=== PATIENT | female | born 1990 | race Caucasian/White ===

== ENCOUNTER 2019-11-26 18:52 | Emergency (ER) | payer OTHER ==
[2019-11-26 19:21] VITALS: RESP 18
[2019-11-26] MEDS ORDERED: ACETAMINOPHEN TAB 500 MG TAB PO STA (20:42)
[2019-11-26] MEDS ORDERED: SODIUM CHLORIDE 0.9% 1,000 ML IV STA (20:42)
--- NOTE | 2019-11-26 21:04 | XR ---
EXAMINATION TYPE: XR chest 2V DATE OF EXAM: 11/26/2019 COMPARISON: NONE HISTORY: Cough TECHNIQUE: FINDINGS: Heart and mediastinum are normal. Lungs are clear. Diaphragm is normal. Bony thorax appears normal. IMPRESSION: Normal chest
--- NOTE | 2019-11-26 21:09 | ED ---
General Adult HPI - General Chief complaint: Upper Respiratory Infection Stated complaint: +flu Time Seen by Provider: 11/26/19 20:23 Source: patient, RN notes reviewed, old records reviewed Mode of arrival: ambulatory Limitations: no limitations - History of Present Illness Initial comments: 29-year-old female patient presents to ED for chief complaint of influenza B. Patient has been having cough, fevers chills, diarrhea, nausea for last 5 days. Patient was seen in urgent care today and diagnosed with influenza initiated on Tamiflu. Patient states that she was told by urgent care she feels worse with emergency department. Patient reports that she is still feeling poorly. Denies any other complaints. Systemic: Pt denies fatigue, fever/chills, rash. Pt denies weakness, night sweats, weight loss. Neuro: Pt denies headache, visual disturbances, syncope or pre-syncope. HEENT: Pt denies ocular discharge or irritation, otalgia, rhinorrhea, ph aryngitis or notable lymphadenopathy. Cardiopulmonary: Pt denies chest pain, SOB, heart palpitations, dyspnea on exertion. Abdominal/GI: Pt denies abdominal pain, n/v/d. : Pt denies dysuria, burning w/ urination, frequency/urgency. Denies new onset urinary or bowel incontinence. MSK: Pt denies myalgia, loss of strength or function in extremities. Neuro: Pt denies new onset weakness, paresthesias. - Related Data Home Medications Medication Instructions Recorded Confirmed No Known Home Medications 03/13/15 03/13/15 Allergies Allergy/AdvReac Type Severity Reaction Status Date / Time aspirin AdvReac Rash/Hives Verified 11/26/19 19:17 peanut AdvReac Unknown Verified 11/26/19 19:17 Review of Systems ROS Statement: Those systems with pertinent positive or pertinent negative responses have been documented in the HPI. ROS Other: All systems not noted in ROS Statement are negative. 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 HEENT: NC/AT, trachea midline, neck supple, no lymphadenopathy. Posterior pharynx non erythematous, without exudates. External ears appear normal, without discharge. Mucous membranes moist. Eyes PERRLA, EOM intact. There is no scleral icterus. No pallor noted. Cardiopulmonary: RRR, no murmurs, rubs or gallops, no JVD noted. Lungs CTAB in anterior and posterior rider. No peripheral edema. Abdominal exam: Abdomen soft and non-distended. Abdomen non-tender to palpation in all 4 quadrants. Bowel sounds active in LLQ. No hepatosplenomegaly. No ecchymosis Neuro: CN II-XII grossly intact. No nuchal rigidity. No raccon eyes, no pino sign, no hemotympanum. No cervical spinal tenderness. MSK: No posterior calf tenderness bilaterally, homans sign negative bilaterally. Posterior tibialis and radial pulse +2 bilaterally. Sensation intact in upper and lower extremities. Full active ROM in upper and lower extremities, 5/5 stregnth. Limitations: no limitations Course Vital Signs 11/26/19 11/26/19 19:17 20:29 Temperature 99.8 F H Pulse Rate 115 H Respiratory 18 18 Rate Blood Pressure 120/77 O2 Sat by Pulse 100 Oximetry Medical Decision Making - Medical Decision Making 29-year-old female patient presents to ED for chief complaint of influenza B. Patient has been having cough, fevers chills, diarrhea, nausea for last 5 days. Patient was seen in urgent care today and diagnosed with influenza initiated on Tamiflu. Patient states that she was told by urgent care she feels worse with emergency department. Patient reports that she is still feeling poorly. Denies any other complaints. Patient will signs displayed 99.8 obturator, mild tachycardia. Patient was a Mr. antipyretic. Physical exam did not display acute pathology. Chest x-ray is negative. Patient was administered fluid bolus and antipyretics. Patient will be discharged, follow-up with primary care prior to return to ER if condition worsens. Case discussed with Dr. Ji. Disposition Clinical Impression: Influenza Disposition: HOME SELF-CARE Condition: Stable Instructions (If sedation given, give patient instructions): Influenza (ED) Additional Instructions: Continue to take Tamiflu as directed. Use Tylenol Motrin as needed for fever. Continue to drink lots of fluids. Return to ER if condition worsens. Is patient prescribed a controlled substance at d/c from ED?: No Referrals: Susie Muller MD [Primary Care Provider] - 1-2 days
[2019-11-26] MEDS ORDERED: FLUTICASONE 50MCG/SPRAY NASAL 16GM EA NOSTRIL STA (21:11)
[2019-11-26 22:33] VITALS: BP 119/67; PULSE 87; TEMP 98.9
== END 2019-11-26 22:35 | disposition home or self-care (01) ==
LOC: EC 18:52
DX: J10.1 Influenza due to other identified influenza virus with other respiratory manifestations (principal); R11.0 Nausea; R19.7 Diarrhea, unspecified; Z87.891 Personal history of nicotine dependence; Z88.6 Allergy status to analgesic agent; Z91.010 Allergy to peanuts; Z90.49 Acquired absence of other specified parts of digestive tract
CPT/HCPCS: 71046; 96360; 99284

== ENCOUNTER 2021-02-27 03:08 | Emergency (ER) | payer OTHER ==
[2021-02-27 03:14] VITALS: TEMP 98
[2021-02-27] MEDS ORDERED: SODIUM CHLORIDE 0.9% 500 ML 500 ML IV STA (03:44)
[2021-02-27] MEDS ORDERED: HYDROcodone/APAP 5-325MG 1 EACH TAB PO STA (03:45)
--- NOTE | 2021-02-27 03:48 | ED ---
Chest Pain HPI - General Chief Complaint: Chest Pain Stated Complaint: covid+, Chest Pain Time Seen by Provider: 02/27/21 03:22 Source: patient Mode of arrival: wheelchair Limitations: no limitations - History of Present Illness MD Complaint: chest pain -: hour(s) Onset: during rest Pain Location: left chest Pain Radiation: none Severity: moderate Quality: aching Improves With: nothing Worsens With: nothing Other Symptoms: cough, fever - Related Data Previous Rx's Medication Instructions Recorded Acetaminophen-Codeine 300-30mg 1 tab PO Q4H PRN #16 tablet 02/27/21 [Tylenol w/codeine #3] Ondansetron Odt [Zofran ODT] 4 mg PO Q8HR PRN #10 tab 02/27/21 Allergies Allergy/AdvReac Type Severity Reaction Status Date / Time aspirin AdvReac Rash/Hives Verified 02/27/21 03:11 peanut AdvReac Unknown Verified 02/27/21 03:11 Review of Systems ROS Statement: Those systems with pertinent positive or pertinent negative responses have been documented in the HPI. ROS Other: All systems not noted in ROS Statement are negative. Constitutional: Reports: fever, chills Respiratory: Reports: cough. Denies: dyspnea Cardiovascular: Reports: chest pain. Denies: palpitations, edema Gastrointestinal: Reports: nausea. Denies: abdominal pain, vomiting Genitourinary: Denies: dysuria, hematuria Musculoskeletal: Reports: back pain, myalgia Skin: Denies: rash Neurological: Reports: headache EKG Findings - EKG Results: EKG: interpreted by ERMD, sinus rhythm (Rate 88 bpm), normal axis, normal QRS, normal ST/T - Blocks, [place], Hypertrophy, ST Abn: Repolarization changes or abnormalities: nonspecific abnormality, ST segment, and/or T wave 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 Absent: scleral icterus, conjunctival injection ENT exam: Present: normal oropharynx Neck exam: Present: normal inspection Respiratory exam: Present: normal lung sounds bilaterally, chest wall tenderness. Absent: respiratory distress, wheezes, rales, rhonchi, stridor Cardiovascular Exam: Present: regular rate, normal rhythm, normal heart sounds. Absent: systolic murmur, diastolic murmur, rubs, gallop GI/Abdominal exam: Present: soft. Absent: distended, tenderness, guarding, rebound, rigid, mass Extremities exam: Present: normal inspection, normal capillary refill. Absent: pedal edema, calf tenderness Back exam: Present: normal inspection. Absent: CVA tenderness (R), CVA tenderness (L) Neurological exam: Present: alert Skin exam: Present: warm, dry, intact, normal color. Absent: rash Course Vital Signs 02/27/21 02/27/21 02/27/21 03:11 03:30 03:52 Temperature 98.0 F Pulse Rate 98 86 Respiratory 18 20 24 Rate Blood Pressure 110/62 105/60 O2 Sat by Pulse 100 97 Oximetry Disposition Clinical Impression: Chest pain, COVID-19 Disposition: HOME SELF-CARE Condition: Good Instructions (If sedation given, give patient instructions): Coronavirus Disease 2019 (COVID-19), Chest Pain (ED) Prescriptions: Acetaminophen-Codeine 300-30mg [Tylenol w/codeine #3] 1 tab PO Q4H PRN #16 tablet PRN Reason: Pain Ondansetron Odt [Zofran ODT] 4 mg PO Q8HR PRN #10 tab PRN Reason: Nausea Is patient prescribed a controlled substance at d/c from ED?: No Referrals: Susie Muller MD [Primary Care Provider] - 1-2 days
[2021-02-27 03:52] VITALS: BP 105/60; PULSE 86; RESP 24
[2021-02-27 04:06] LABS: Basophils % (A) 0 %; Eosinophils % (A) 1 %; HCT 40.9 % (34.0-46.0); HGB 14.3 gm/dL (11.4-16.0); Lymphocytes # (A) 0.7 k/uL (1.0-4.8); Lymphocytes % (A) 29 %; MCH 29.6 pg (25.0-35.0); MCHC 34.9 g/dL (31.0-37.0); MCV 84.9 fL (80.0-100.0); Mean Platelet Volume 10.4; Monocytes # (A) 0.1 k/uL (0-1.0); Monocytes % (A) 5 %; Neutrophils # (A) 1.5 k/uL (1.3-7.7); Neutrophils % (A) 64 %; Platelet Count 106 k/uL (150-450); RBC 4.82 m/uL (3.80-5.40); RDW 11.9 % (11.5-15.5); WBC 2.4 k/uL (3.8-10.6)
[2021-02-27 04:17] LABS: ALT 40 U/L (4-34); AST 43 U/L (14-36); African American GFR (CKD) >90 (>60 ml/min/1.73 sqM); Albumin 3.8 g/dL (3.5-5.0); Alkaline Phosphatase 93 U/L (38-126); Anion Gap 6 mmol/L; Blood Urea Nitrogen 14 mg/dL (7-17); Calcium 8.9 mg/dL (8.4-10.2); Carbon Dioxide 25 mmol/L (22-30); Chloride 106 mmol/L (98-107); Glucose 91 mg/dL (74-99); Magnesium 1.5 mg/dL (1.6-2.3); Non-African American GFR(CKD) >90 (>60 ml/min/1.73 sqM); Sodium 137 mmol/L (137-145); Total Bilirubin 0.4 mg/dL (0.2-1.3); Total Protein 6.4 g/dL (6.3-8.2)
[2021-02-27 04:18] LABS: Potassium 3.9 mmol/L (3.5-5.1)
[2021-02-27 04:21] LABS: INR 0.9 (<1.2); Partial Thromboplastin Time 24.2 sec (22.0-30.0); Prothrombin Time 9.9 sec (9.0-12.0)
--- NOTE | 2021-02-27 04:36 | XR ---
EXAM: XR Chest, 2 Views CLINICAL HISTORY: ITS.REASON XR Reason: Chest Pain TECHNIQUE: Frontal and lateral views of the chest. COMPARISON: 11/26/2019 FINDINGS: Lungs: Unremarkable. No consolidation. Pleural space: Unremarkable. No pneumothorax. Heart: Unremarkable. No cardiomegaly. Mediastinum: Unremarkable. Bones/joints: Unremarkable. IMPRESSION: No acute pulmonary process.
[2021-02-27 05:00] LABS: D-Dimer 0.82 mg/L FEU (<0.60)
--- NOTE | 2021-02-27 06:28 | CT ---
EXAM: CT Angiography Chest With Intravenous Contrast CLINICAL HISTORY: ITS.REASON CT Reason: possible PE TECHNIQUE: Axial computed tomographic angiography images of the chest with intravenous contrast. CTDI is 22.17 mGy and DLP is 275.2 mGy-cm. This CT exam was performed using one or more of the following dose reduction techniques: automated exposure control, adjustment of the mA and/or kV according to patient size, and/or use of iterative reconstruction technique. MIP reconstructed images were created and reviewed. COMPARISON: No relevant prior studies available. FINDINGS: Pulmonary arteries: Unremarkable. No pulmonary embolism. Aorta: No acute findings. No thoracic aortic aneurysm. Lungs: Patchy opacification of the posterior right base. No mass. Pleural space: Unremarkable. No significant effusion. No pneumothorax. Heart: Unremarkable. No cardiomegaly. No significant pericardial effusion. No evidence of RV dysfunction. Bones/joints: No acute fracture. No dislocation. Soft tissues: Unremarkable. Lymph nodes: Unremarkable. No enlarged lymph nodes. IMPRESSION: 1. No acute pulmonary ballism. 2. Patchy focus of nodular consolidation of the posterior right base which may be due to aspiration or infection.
== END 2021-02-27 07:59 | disposition home or self-care (01) ==
LOC: EC 03:08
DX: U07.1 COVID-19 (principal); R07.9 Chest pain, unspecified; J45.909 Unspecified asthma, uncomplicated; F17.200 Nicotine dependence, unspecified, uncomplicated; Z90.49 Acquired absence of other specified parts of digestive tract
CPT/HCPCS: 99285; 36415; 93005; 85379; 80053; 83735; 84484; 85025; 85610; 85730; 71046; 71275; Q9967

== ENCOUNTER 2021-03-01 13:14 | Emergency (ER) | payer OTHER ==
[2021-03-01 13:24] VITALS: BP 113/78; PULSE 101; RESP 18; TEMP 98
[2021-03-01] MEDS ORDERED: SODIUM CHLORIDE 0.9% 1,000 ML IV STA (13:29)
--- NOTE | 2021-03-01 13:29 | ED ---
Nausea/Vomiting/Diarrhea HPI - General Chief complaint: Nausea/Vomiting/Diarrhea Stated complaint: Covid +,SOB Time Seen by Provider: 03/01/21 13:28 Source: patient Mode of arrival: ambulatory - History of Present Illness Initial comments: Kaitlynn a 1-year-old female who was diagnosed with COVID-19 earlier this week, she returns to the ER today reporting that she still feels unwell she has persistent nausea has not been able to eat any solids. She's been trying to drink fluids but not certain if she streaking enough. Patient reports she just does not feel well. She was prescribed Zofran earlier in the week she's been taking up with only minimal improvement in her nausea. - Related Data Previous Rx's Medication Instructions Recorded Acetaminophen-Codeine 300-30mg 1 tab PO Q4H PRN #16 tablet 02/27/21 [Tylenol w/codeine #3] Ondansetron Odt [Zofran ODT] 4 mg PO Q8HR PRN #10 tab 02/27/21 Promethazine [Phenergan] 25 mg PO Q6HR #12 tablet 03/01/21 Promethazine [Phenergan] 25 mg PO Q6HR #12 tablet 03/01/21 Allergies Allergy/AdvReac Type Severity Reaction Status Date / Time aspirin AdvReac Rash/Hives Verified 03/01/21 13:24 peanut AdvReac Unknown Verified 03/01/21 13:24 Review of Systems ROS Statement: Those systems with pertinent positive or pertinent negative responses have been documented in the HPI. ROS Other: All systems not noted in ROS Statement are negative. 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 Laying on the bed, appears as though she does not feel well but is non-toxic HENT: Normocephalic, Atraumatic. EYES: PERRL, EOMI PULMONARY: Unlabored respirations. No audible rales rhonchi or wheezing was noted. CARDIOVASCULAR: There is a regular rate and rhythm without any murmurs gallops or rubs. ABDOMEN: Soft and nontender SKIN: Skin is clear with no lesions or rashes and otherwise unremarkable. : Deferred NEUROLOGIC: Patient is alert and oriented x3. Moving all extremities spontaneously MUSCULOSKELETAL: Normal extremities with adequate strength and full range of motion. No lower extremity swelling or edema. No calf tenderness. PSYCHIATRIC: Normal psychiatric evaluation. Course Vital Signs 03/01/21 13:20 Temperature 98.0 F Pulse Rate 101 H Respiratory 18 Rate Blood Pressure 113/78 O2 Sat by Pulse 98 Oximetry Medical Decision Making - Medical Decision Making HEENT and evaluated labs are obtained IV fluids were administered Labs are relatively unremarkable consistent with COVID-19 no significant dehydration Patient had no vomiting in the emergency department so reported feeling unwell and nauseated. I discussed with the patient that she will likely continue to have symptoms secondary to the COVID-19. At this time there is no indication for admission for persistent nausea and she is able to tolerate oral fluids and stay hydrated. I advised patient we can prescribe an additional antiemetic we'll prescribe Phenergan. - Lab Data Result diagrams: 03/01/21 13:42 03/01/21 13:42 Lab Results 03/01/21 03/01/21 Range/Units 13:42 13:42 WBC 3.2 L (3.8-10.6) k/uL RBC 4.71 (3.80-5.40) m/uL Hgb 14.3 (11.4-16.0) gm/dL Hct 40.1 (34.0-46.0) % MCV 85.0 (80.0-100.0) fL MCH 30.4 (25.0-35.0) pg MCHC 35.8 (31.0-37.0) g/dL RDW 11.8 (11.5-15.5) % Plt Count 103 L (150-450) k/uL MPV 10.5 Neutrophils % 70 % Lymphocytes % 24 % Monocytes % 4 % Eosinophils % 1 % Basophils % 0 % Neutrophils # 2.3 (1.3-7.7) k/uL Lymphocytes # 0.8 L (1.0-4.8) k/uL Monocytes # 0.1 (0-1.0) k/uL Eosinophils # 0.0 (0-0.7) k/uL Basophils # 0.0 (0-0.2) k/uL Sodium 137 (137-145) mmol/L Potassium 4.0 (3.5-5.1) mmol/L Chloride 105 (98-107) mmol/L Carbon Dioxide 25 (22-30) mmol/L Anion Gap 7 mmol/L BUN 15 (7-17) mg/dL Creatinine 0.79 (0.52-1.04) mg/dL Est GFR (CKD-EPI)AfAm >90 (>60 ml/min/1.73 sqM) Est GFR (CKD-EPI)NonAf >90 (>60 ml/min/1.73 sqM) Glucose 90 (74-99) mg/dL Calcium 9.1 (8.4-10.2) mg/dL Total Bilirubin 0.5 (0.2-1.3) mg/dL AST 63 H (14-36) U/L ALT 62 H (4-34) U/L Alkaline Phosphatase 109 (38-126) U/L Total Protein 6.5 (6.3-8.2) g/dL Albumin 3.9 (3.5-5.0) g/dL Lipase 82 (23-300) U/L Disposition Clinical Impression: COVID-19 Disposition: HOME SELF-CARE Condition: Stable Instructions (If sedation given, give patient instructions): Acute Nausea and Vomiting (ED) Prescriptions: Promethazine [Phenergan] 25 mg PO Q6HR #12 tablet Promethazine [Phenergan] 25 mg PO Q6HR #12 tablet Is patient prescribed a controlled substance at d/c from ED?: No Referrals: Susie Muller MD [Primary Care Provider] - 1-2 days
[2021-03-01 13:49] LABS: Basophils % (A) 0 %; Eosinophils % (A) 1 %; HCT 40.1 % (34.0-46.0); HGB 14.3 gm/dL (11.4-16.0); Lymphocytes # (A) 0.8 k/uL (1.0-4.8); Lymphocytes % (A) 24 %; MCH 30.4 pg (25.0-35.0); MCHC 35.8 g/dL (31.0-37.0); Mean Platelet Volume 10.5; Monocytes # (A) 0.1 k/uL (0-1.0); Monocytes % (A) 4 %; Neutrophils # (A) 2.3 k/uL (1.3-7.7); Neutrophils % (A) 70 %; Platelet Count 103 k/uL (150-450); RBC 4.71 m/uL (3.80-5.40); RDW 11.8 % (11.5-15.5); WBC 3.2 k/uL (3.8-10.6)
[2021-03-01 14:10] LABS: ALT 62 U/L (4-34); AST 63 U/L (14-36); African American GFR (CKD) >90 (>60 ml/min/1.73 sqM); Albumin 3.9 g/dL (3.5-5.0); Alkaline Phosphatase 109 U/L (38-126); Anion Gap 7 mmol/L; Blood Urea Nitrogen 15 mg/dL (7-17); Calcium 9.1 mg/dL (8.4-10.2); Carbon Dioxide 25 mmol/L (22-30); Chloride 105 mmol/L (98-107); Glucose 90 mg/dL (74-99); Lipase 82 U/L (23-300); Non-African American GFR(CKD) >90 (>60 ml/min/1.73 sqM); Sodium 137 mmol/L (137-145); Total Bilirubin 0.5 mg/dL (0.2-1.3); Total Protein 6.5 g/dL (6.3-8.2)
== END 2021-03-01 14:54 | disposition home or self-care (01) ==
LOC: EC 13:14
DX: U07.1 COVID-19 (principal); F17.200 Nicotine dependence, unspecified, uncomplicated; Z88.6 Allergy status to analgesic agent; Z91.010 Allergy to peanuts
CPT/HCPCS: 36415; 80053; 83690; 85025; 96360; 99284

== ENCOUNTER → 2021-03-20 | Outpatient (CLI) | payer BC, OTHER ==
--- NOTE | 2021-03-20 10:40 | US ---
EXAMINATION TYPE: US abdomen complete DATE OF EXAM: 03/20/2021 COMPARISON: NONE CLINICAL HISTORY: R10.30 LOWER ABD PAIN,R10.12 LUQ ABD PAIN,R10.31 RLQ PAIN. Pain had part of liver a n gb removed due to CA at 6 months. EXAM MEASUREMENTS: Liver Length: 16.1 cm Gallbladder Wall: Surgically absent cm CBD: .4 cm Spleen: 10.9 cm Right Kidney: 9.4 x 4.0 x 4.6 cm Left Kidney: 10.8 x 5.1 x 4.1 cm Pancreas: Obscured by bowel gas Liver: Increased attenuation Gallbladder: Surgically absent Evidence for sonographic Clarke's sign: No CBD: wnl Spleen: 6 mm calcification seen Right Kidney: wnl Left Kidney: wnl Upper IVC: wnl Abd Aorta: Proximal area obscured by bowel gas. The visualized liver is homogenous. The intrahepatic portion of the IVC and visualized mid and dista l abdominal aorta are within normal limits. Gallbladder noted surgically absent. Common bile duct is within normal limits after cholecystectomy. Suboptimal evaluation of pancreas on initial images seco ndary to shadowing from overlying bowel gas. The spleen shows single calcification or granuloma. Ki dneys are symmetric and free of hydronephrosis. No renal lesions are seen. IMPRESSION: Suboptimal evaluation of pancreas otherwise No acute findings are evident.
== END | disposition home or self-care (01) ==
LOC: RADUSWWP 08:56
PROVIDERS: ATTEND Family Medicine
DX: R10.12 Left upper quadrant pain (principal); R10.31 Right lower quadrant pain; R10.30 Lower abdominal pain, unspecified
CPT/HCPCS: 76700

== ENCOUNTER 2021-05-01 16:39 | Emergency (ER) | payer BC, OTHER ==
[2021-05-01 16:50] VITALS: RESP 18; TEMP 97.9
[2021-05-01] MEDS ORDERED: SODIUM CHLORIDE 0.9% 2,000 ML IV STA (16:59)
[2021-05-01 17:16] LABS: Basophils % (A) 1 %; Eosinophils % (A) 1 %; HCT 37.4 % (34.0-46.0); HGB 12.4 gm/dL (11.4-16.0); Lymphocytes # (A) 1.5 k/uL (1.0-4.8); Lymphocytes % (A) 27 %; MCH 29.4 pg (25.0-35.0); MCHC 33.3 g/dL (31.0-37.0); MCV 88.5 fL (80.0-100.0); Mean Platelet Volume 10.7; Monocytes # (A) 0.3 k/uL (0-1.0); Monocytes % (A) 5 %; Neutrophils # (A) 3.6 k/uL (1.3-7.7); Neutrophils % (A) 66 %; RBC 4.23 m/uL (3.80-5.40); RDW 13.6 % (11.5-15.5); WBC 5.5 k/uL (3.8-10.6)
[2021-05-01 17:26] LABS: Potassium 4.6 mmol/L (3.5-5.1)
[2021-05-01 17:27] LABS: Albumin 4.1 g/dL (3.5-5.0); Calcium 9.6 mg/dL (8.4-10.2); Total Bilirubin 0.3 mg/dL (0.2-1.3); Total Protein 6.6 g/dL (6.3-8.2)
[2021-05-01 17:33] LABS: Platelet Count 207 k/uL (150-450)
[2021-05-01 18:14] LABS: Appearance,Urine Cloudy (Clear); Bacteria,Urine Occasional /hpf; Bilirubin,Urine Negative (Negative); Blood,Urine Negative (Negative); Color,Urine Yellow; Glucose,Urine (UA) Negative (Negative); Ketones,Urine Negative (Negative); Leukocyte Esterase,Urine Small (Negative); Mucus,Urine Rare /hpf; Nitrite,Urine Negative (Negative); PH, Urine 5.5 (5.0-8.0); Protein,Urine Negative (Negative); RBC,Urine 4 /hpf (0-5); Specific Gravity,Urine 1.025 (1.001-1.035); Squamous Epithelial Cell,Urine 7 /hpf (0-4); Urobilinogen,Urine <2.0 mg/dL (<2.0); WBC,Urine 2 /hpf (0-5)
--- NOTE | 2021-05-01 18:23 | ED ---
General Adult HPI - General Chief complaint: Abdominal Pain Stated complaint: post colonoscopy diarrhea Time Seen by Provider: 05/01/21 16:59 Source: patient, RN notes reviewed Mode of arrival: ambulatory Limitations: no limitations - History of Present Illness Initial comments: 30-year-old female presents to the emergency room for a chief complaint of diarrhea. Patient reports that she had chronic diarrhea for about one year now that would come and go. She had a colonoscopy 5 days ago because of this. Patient states she did do the bowel prep. She states ever since that time she has had significant diarrhea. She states just initiated drink something she has diarrhea. She contacted her GI doctor who told her to come to the ER for fluids if she felt dehydrated. Patient denies any new abdominal pain since the procedure. She does admit to nausea but she denies vomiting. Patient has no other complaints at this time including shortness of breath, chest pain, abdominal pain, vomiting, headache, or visual changes. - Related Data Previous Rx's Medication Instructions Recorded Acetaminophen-Codeine 300-30mg 1 tab PO Q4H PRN #16 tablet 02/27/21 [Tylenol w/codeine #3] Ondansetron Odt [Zofran ODT] 4 mg PO Q8HR PRN #10 tab 02/27/21 Promethazine [Phenergan] 25 mg PO Q6HR #12 tablet 03/01/21 Promethazine [Phenergan] 25 mg PO Q6HR #12 tablet 03/01/21 Allergies Allergy/AdvReac Type Severity Reaction Status Date / Time aspirin AdvReac Rash/Hives Verified 05/01/21 16:50 peanut AdvReac Unknown Verified 05/01/21 16:50 Review of Systems ROS Statement: Those systems with pertinent positive or pertinent negative responses have been documented in the HPI. ROS Other: All systems not noted in ROS Statement are negative. Past Medical History Past Medical History: Asthma History of Any Multi-Drug Resistant Organisms: None Reported Past Surgical History: Appendectomy, Cholecystectomy Additional Past Surgical History / Comment(s): heptoblastoma with 60% liver lissy edward Past Psychological History: Anxiety, Depression, Schizophrenia Smoking Status: Current every day smoker Past Alcohol Use History: None Reported Past Drug Use History: None Reported General Exam Limitations: no limitations General appearance: alert, in no apparent distress Head exam: Present: atraumatic, normocephalic, normal inspection Eye exam: Present: normal appearance ENT exam: Present: normal exam, mucous membranes moist Neck exam: Present: normal inspection, full ROM. Absent: tenderness, meningismus, lymphadenopathy Respiratory exam: Present: normal lung sounds bilaterally. Absent: respiratory distress, wheezes, rales, rhonchi, stridor Cardiovascular Exam: Present: regular rate, normal rhythm, normal heart sounds. Absent: systolic murmur, diastolic murmur, rubs, gallop, clicks GI/Abdominal exam: Present: soft, normal bowel sounds. Absent: distended, tenderness, guarding, rebound, rigid Neurological exam: Present: alert Course Vital Signs 05/01/21 16:45 Temperature 97.9 F Pulse Rate 85 Respiratory 18 Rate Blood Pressure 120/80 O2 Sat by Pulse 100 Oximetry Medical Decision Making - Medical Decision Making Vitals are stable. Patient is well-appearing. CBC is unremarkable. CMP does s how elevated BUN with a BUN to creatinine ratio of 22.3. Urinalysis is unremarkable. Patient was given 2 L of fluid. Patient is stable at this time for outpatient follow-up. She'll return for any worsening symptoms. - Lab Data Result diagrams: 05/01/21 17:10 05/01/21 17:10 Lab Results 05/01/21 05/01/21 05/01/21 Range/Units 17:10 17:10 17:10 WBC 5.5 (3.8-10.6) k/uL RBC 4.23 (3.80-5.40) m/uL Hgb 12.4 (11.4-16.0) gm/dL Hct 37.4 (34.0-46.0) % MCV 88.5 (80.0-100.0) fL MCH 29.4 (25.0-35.0) pg MCHC 33.3 (31.0-37.0) g/dL RDW 13.6 (11.5-15.5) % Plt Count 207 D (150-450) k/uL MPV 10.7 Neutrophils % 66 % Lymphocytes % 27 % Monocytes % 5 % Eosinophils % 1 % Basophils % 1 % Neutrophils # 3.6 (1.3-7.7) k/uL Lymphocytes # 1.5 (1.0-4.8) k/uL Monocytes # 0.3 (0-1.0) k/uL Eosinophils # 0.0 (0-0.7) k/uL Basophils # 0.0 (0-0.2) k/uL Sodium 139 (137-145) mmol/L Potassium 4.6 (3.5-5.1) mmol/L Chloride 106 (98-107) mmol/L Carbon Dioxide 26 (22-30) mmol/L Anion Gap 7 mmol/L BUN 23 H (7-17) mg/dL Creatinine 1.03 (0.52-1.04) mg/dL Est GFR (CKD-EPI)AfAm 84 (>60 ml/min/1.73 sqM) Est GFR (CKD-EPI)NonAf 73 (>60 ml/min/1.73 sqM) Glucose 93 (74-99) mg/dL Calcium 9.6 (8.4-10.2) mg/dL Total Bilirubin 0.3 (0.2-1.3) mg/dL AST 22 (14-36) U/L ALT 22 (4-34) U/L Alkaline Phosphatase 53 (38-126) U/L Total Protein 6.6 (6.3-8.2) g/dL Albumin 4.1 (3.5-5.0) g/dL Amylase 52 (30-110) U/L Lipase 109 (23-300) U/L Urine Color Yellow Urine Appearance Cloudy H (Clear) Urine pH 5.5 (5.0-8.0) Ur Specific [place] 1.025 (1.001-1.035) Urine Protein Negative (Negative) Urine Glucose (UA) Negative (Negative) Urine Ketones Negative (Negative) Urine Blood Negative (Negative) Urine Nitrite Negative (Negative) Urine Bilirubin Negative (Negative) Urine Urobilinogen <2.0 (<2.0) mg/dL Ur Leukocyte Esterase Small H (Negative) Urine RBC 4 (0-5) /hpf Urine WBC 2 (0-5) /hpf Ur Squamous Epith Cells 7 H (0-4) /hpf Urine Bacteria Occasional H (None) /hpf Urine Mucus Rare H (None) /hpf Disposition Clinical Impression: Diarrhea Disposition: HOME SELF-CARE Condition: Good Instructions (If sedation given, give patient instructions): Acute Diarrhea (ED) Additional Instructions: Please drink plenty of fluids. You can try Imodium over the counter. Please follow-up with your GI doctor Tuesday is symptoms do not resolve. If symptoms worsen return to the emergency room. Is patient prescribed a controlled substance at d/c from ED?: No Referrals: Susie Muller MD [Primary Care Provider] - 1-2 days Claudette Hernandez MD [STAFF PHYSICIAN] - 1-2 days Time of Disposition: 18:22
[2021-05-01] MEDS ORDERED: LOPERAMIDE 2 MG CAP PO STA (18:30)
[2021-05-01 18:50] VITALS: BP 124/82; PULSE 82
== END 2021-05-01 18:49 | disposition home or self-care (01) ==
LOC: EC 16:39
DX: R19.7 Diarrhea, unspecified (principal); J45.909 Unspecified asthma, uncomplicated; Z90.49 Acquired absence of other specified parts of digestive tract; Z90.89 Acquired absence of other organs; F17.200 Nicotine dependence, unspecified, uncomplicated; F32.9 Major depressive disorder, single episode, unspecified
CPT/HCPCS: 36415; 80053; 81001; 82150; 83690; 85025; 96360; 99284

== ENCOUNTER 2021-06-08 22:44 | Emergency (ER) | payer BC, OTHER ==
[2021-06-08 23:03] VITALS: RESP 16
--- NOTE | 2021-06-08 23:19 | ED ---
Female Urogenital HPI - General Chief complaint: Vaginal Bleeding Stated complaint: Abdominal pain Time Seen by Provider: 06/08/21 23:14 Source: patient, RN notes reviewed, old records reviewed Mode of arrival: ambulatory Limitations: no limitations - History of Present Illness Initial comments: This is a 30-year-old female to the ER for evaluation patient coming in for abdominal pain pelvic crampy pain and passage of clots and tissue. Patient has heavy symptoms for a couple weeks now on and off. Progressively worse today. Patient does have a primary care visit scheduled for a few weeks from now which she made secondary to the symptoms but they seem to be getting worse. Patient is currently having crampy abdominal pain with no fevers no nausea vomiting or diarrhea. Denies chance of as she is she knows incapable of conceiving and has not had sex in 2 years. Patient did have cancer as a young child and thinks that treatment for that may have made her sterile. Patient does have bleeding usually abnormal does not feel lightheaded or dizzy. Although this bleeding is worse than normal MD Complaint: vaginal bleeding, pelvic pain -: week(s) Location: suprapubic Radiation: suprapubic Severity: moderate Severity scale (1-10): 7 Quality: cramping, sharp Consistency: intermittent Improves with: none Worsens with: none Patient : No Associated Symptoms: vaginal bleeding, nausea/vomiting - Related Data Sexually active: No Previous Rx's Medication Instructions Recorded Acetaminophen-Codeine 300-30mg 1 tab PO Q4H PRN #16 tablet 02/27/21 [Tylenol w/codeine #3] Ondansetron Odt [Zofran ODT] 4 mg PO Q8HR PRN #10 tab 02/27/21 Promethazine [Phenergan] 25 mg PO Q6HR #12 tablet 03/01/21 Promethazine [Phenergan] 25 mg PO Q6HR #12 tablet 03/01/21 Allergies Allergy/AdvReac Type Severity Reaction Status Date / Time aspirin AdvReac Rash/Hives Verified 06/08/21 23:02 peanut AdvReac Unknown Verified 06/08/21 23:02 Review of Systems ROS Statement: Those systems with pertinent positive or pertinent negative responses have been documented in the HPI. ROS Other: All systems not noted in ROS Statement are negative. 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 Absent: scleral icterus, conjunctival injection, periorbital swelling ENT exam: Present: normal exam, mucous membranes moist Neck exam: Present: normal inspection. Absent: tenderness, meningismus, lymphadenopathy Respiratory exam: Present: normal lung sounds bilaterally. Absent: respiratory distress, wheezes, rales, rhonchi, stridor Cardiovascular Exam: Present: regular rate, normal rhythm, normal heart sounds. Absent: systolic murmur, diastolic murmur, rubs, gallop, clicks GI/Abdominal exam: Present: soft, normal bowel sounds. Absent: distended, tenderness, guarding, rebound, rigid Extremities exam: Present: normal inspection, full ROM, normal capillary refill. Absent: tenderness, pedal edema, joint swelling, calf tenderness Back exam: Present: normal inspection Neurological exam: Present: alert, oriented X3, CN II-XII intact Psychiatric exam: Present: normal affect, normal mood Skin exam: Present: warm, dry, intact, normal color. Absent: rash Course Vital Signs 06/08/21 22:55 Temperature 98.4 F Pulse Rate 111 H Respiratory 16 Rate Blood Pressure 118/81 O2 Sat by Pulse 100 Oximetry - Reevaluation(s) Reevaluation #1: 06/09/21 02:41 Medical record is reviewed Reevaluation #2: 06/09/21 03:25 Symptoms are improved here in the ER Reevaluation #3: 06/09/21 03:26 Patient informed results and questions are answered Medical Decision Making - Medical Decision Making 30 female who presents today for persistent abdominal pain and cramping. Likely possible ruptured ovarian cyst. Patient can be discharged home - Lab Data Result diagrams: 06/09/21 00:36 06/09/21 00:36 Lab Results 06/09/21 06/09/21 06/09/21 Range/Units 00:34 00:36 00:36 WBC 8.8 (3.8-10.6) k/uL RBC 4.24 (3.80-5.40) m/uL Hgb 12.9 (11.4-16.0) gm/dL Hct 37.8 (34.0-46.0) % MCV 89.3 (80.0-100.0) fL MCH 30.4 (25.0-35.0) pg MCHC 34.1 (31.0-37.0) g/dL RDW 12.5 (11.5-15.5) % Plt Count 203 (150-450) k/uL MPV 10.0 Neutrophils % 73 % Lymphocytes % 22 % Monocytes % 4 % Eosinophils % 1 % Basophils % 0 % Neutrophils # 6.4 (1.3-7.7) k/uL Lymphocytes # 1.9 (1.0-4.8) k/uL Monocytes # 0.3 (0-1.0) k/uL Eosinophils # 0.0 (0-0.7) k/uL Basophils # 0.0 (0-0.2) k/uL PT 10.1 (9.0-12.0) sec INR 0.9 (<1.2) APTT 21.4 L (22.0-30.0) sec Sodium (137-145) mmol/L Potassium (3.5-5.1) mmol/L Chloride (98-107) mmol/L Carbon Dioxide (22-30) mmol/L Anion Gap mmol/L BUN (7-17) mg/dL Creatinine (0.52-1.04) mg/dL Est GFR (CKD-EPI)AfAm (>60 ml/min/1.73 sqM) Est GFR (CKD-EPI)NonAf (>60 ml/min/1.73 sqM) Glucose (74-99) mg/dL Calcium (8.4-10.2) mg/dL Total Bilirubin (0.2-1.3) mg/dL AST (14-36) U/L ALT (4-34) U/L Alkaline Phosphatase (38-126) U/L Total Protein (6.3-8.2) g/dL Albumin (3.5-5.0) g/dL HCG, Quant mIU/mL Urine Color Urine Appearance (Clear) Urine pH (5.0-8.0) Ur Specific [place] (1.001-1.035) Urine Protein (Negative) Urine Glucose (UA) (Negative) Urine Ketones (Negative) Urine Blood (Negative) Urine Nitrite (Negative) Urine Bilirubin (Negative) Urine Urobilinogen (<2.0) mg/dL Ur Leukocyte Esterase (Negative) Urine RBC (0-5) /hpf Urine WBC (0-5) /hpf Ur Squamous Epith Cells (0-4) /hpf Urine Mucus (None) /hpf Urine HCG, Qual (Not Detectd) Blood Type Recheck No Previous Record Bld Type Recheck Status CABO Indicated Spec Expiration Date 06/12/2021 - 233306/09/21 06/09/21 06/09/21 Range/Units 00:36 00:36 00:36 WBC (3.8-10.6) k/uL RBC (3.80-5.40) m/uL Hgb (11.4-16.0) gm/dL Hct (34.0-46.0) % MCV (80.0-100.0) fL MCH (25.0-35.0) pg MCHC (31.0-37.0) g/dL RDW (11.5-15.5) % Plt Count (150-450) k/uL MPV Neutrophils % % Lymphocytes % % Monocytes % % Eosinophils % % Basophils % % Neutrophils # (1.3-7.7) k/uL Lymphocytes # (1.0-4.8) k/uL Monocytes # (0-1.0) k/uL Eosinophils # (0-0.7) k/uL Basophils # (0-0.2) k/uL PT (9.0-12.0) sec INR (<1.2) APTT (22.0-30.0) sec Sodium 139 (137-145) mmol/L Potassium 4.2 (3.5-5.1) mmol/L Chloride 105 (98-107) mmol/L Carbon Dioxide 26 (22-30) mmol/L Anion Gap 8 mmol/L BUN 15 (7-17) mg/dL Creatinine 0.85 (0.52-1.04) mg/dL Est GFR (CKD-EPI)AfAm >90 (>60 ml/min/1.73 sqM) Est GFR (CKD-EPI)NonAf >90 (>60 ml/min/1.73 sqM) Glucose 110 H (74-99) mg/dL Calcium 9.2 (8.4-10.2) mg/dL Total Bilirubin 0.3 (0.2-1.3) mg/dL AST 18 (14-36) U/L ALT 12 (4-34) U/L Alkaline Phosphatase 67 (38-126) U/L Total Protein 6.6 (6.3-8.2) g/dL Albumin 4.0 (3.5-5.0) g/dL HCG, Quant <2.4 mIU/mL Urine Color Yellow Urine Appearance Cloudy H (Clear) Urine pH 5.5 (5.0-8.0) Ur Specific [place] 1.028 (1.001-1.035) Urine Protein Trace H (Negative) Urine Glucose (UA) Negative (Negative) Urine Ketones Negative (Negative) Urine Blood Moderate H (Negative) Urine Nitrite Negative (Negative) Urine Bilirubin Negative (Negative) Urine Urobilinogen <2.0 (<2.0) mg/dL Ur Leukocyte Esterase Trace H (Negative) Urine RBC 3 (0-5) /hpf Urine WBC 6 H (0-5) /hpf Ur Squamous Epith Cells 2 (0-4) /hpf Urine Mucus Many H (None) /hpf Urine HCG, Qual Not Detected (Not Detectd) Blood Type Recheck Bld Type Recheck Status Spec Expiration Date - Radiology Data Radiology results: report reviewed (Ultrasound pelvis and CT abdomen and pelvis negative for significant acute disease scant free fluid), image reviewed Disposition Clinical Impression: Dysfunctional uterine bleeding, Ruptured ovarian cyst Disposition: HOME SELF-CARE Condition: Good Instructions (If sedation given, give patient instructions): Dysmenorrhea (ED) Is patient prescribed a controlled substance at d/c from ED?: No Referrals: Susie Muller MD [Primary Care Provider] - 1-2 days
[2021-06-09] MEDS ORDERED: SODIUM CHLORIDE 0.9% 1,000 ML IV ONE (00:09)
[2021-06-09] MEDS ORDERED: KETOROLAC 15 MG/ML 1 ML VIAL IVP STA (00:57)
[2021-06-09 01:09] LABS: Basophils % (A) 0 %; Eosinophils % (A) 1 %; HCT 37.8 % (34.0-46.0); HGB 12.9 gm/dL (11.4-16.0); Lymphocytes # (A) 1.9 k/uL (1.0-4.8); Lymphocytes % (A) 22 %; MCH 30.4 pg (25.0-35.0); MCHC 34.1 g/dL (31.0-37.0); MCV 89.3 fL (80.0-100.0); Monocytes # (A) 0.3 k/uL (0-1.0); Monocytes % (A) 4 %; Neutrophils # (A) 6.4 k/uL (1.3-7.7); Neutrophils % (A) 73 %; Platelet Count 203 k/uL (150-450); RBC 4.24 m/uL (3.80-5.40); RDW 12.5 % (11.5-15.5); WBC 8.8 k/uL (3.8-10.6)
[2021-06-09 01:22] LABS: ALT 12 U/L (4-34); AST 18 U/L (14-36); African American GFR (CKD) >90 (>60 ml/min/1.73 sqM); Alkaline Phosphatase 67 U/L (38-126); Anion Gap 8 mmol/L; Appearance,Urine Cloudy (Clear); Bilirubin,Urine Negative (Negative); Blood Urea Nitrogen 15 mg/dL (7-17); Blood,Urine Moderate (Negative); Calcium 9.2 mg/dL (8.4-10.2); Carbon Dioxide 26 mmol/L (22-30); Chloride 105 mmol/L (98-107); Color,Urine Yellow; Glucose 110 mg/dL (74-99); Glucose,Urine (UA) Negative (Negative); Ketones,Urine Negative (Negative); Leukocyte Esterase,Urine Trace (Negative); Mucus,Urine Many /hpf; Nitrite,Urine Negative (Negative); Non-African American GFR(CKD) >90 (>60 ml/min/1.73 sqM); PH, Urine 5.5 (5.0-8.0); Potassium 4.2 mmol/L (3.5-5.1); Protein,Urine Trace (Negative); RBC,Urine 3 /hpf (0-5); Sodium 139 mmol/L (137-145); Specific Gravity,Urine 1.028 (1.001-1.035); Squamous Epithelial Cell,Urine 2 /hpf (0-4); Total Bilirubin 0.3 mg/dL (0.2-1.3); Total Protein 6.6 g/dL (6.3-8.2); Urobilinogen,Urine <2.0 mg/dL (<2.0); WBC,Urine 6 /hpf (0-5)
[2021-06-09 01:31] LABS: INR 0.9 (<1.2); Prothrombin Time 10.1 sec (9.0-12.0)
[2021-06-09 01:39] LABS: HCG,Quantitative Serum <2.4 mIU/mL
[2021-06-09 01:55] LABS: Partial Thromboplastin Time 21.4 sec (22.0-30.0)
--- NOTE | 2021-06-09 02:26 | US ---
EXAMINATION TYPE: US transvaginal DATE OF EXAM: 06/09/2021 COMPARISON: NONE CLINICAL HISTORY: pain. Pain x 3 weeks. G0. LMP unknown. TECHNIQUE: Transvaginal (TV). Date of LMP: Unknown. EXAM MEASUREMENTS: Uterus: 9.0 x 6.0 x 4.2 cm Endometrial Stripe: 0.40 cm Right Ovary: Not seen. Left Ovary: 2.6 x 1.1 x 1.3 cm 1. Uterus: Anteverted 2. Endometrium: Complex area seen within endometrium: 2.6 x 2.2 x 0.6 cm. 3. Right Ovary: Not seen. 4. Left Ovary: Limited visibility. Spectral, color and waveform doppler imaging shows arterial flow within the left ovary. Difficult t o visualize clear venous waveform-limited. Possible venous waveform shown. Right ovary not seen. 5. Bilateral Adnexa: Appear wnl. 6. Posterior cul-de-sac: Minimal fluid seen: 1.2 x 1.8 x 0.3 cm. IMPRESSION: There is some complex endometrial fluid of uncertain significance. This could be blood clot. No adnex al mass. No evidence of ovarian torsion.
--- NOTE | 2021-06-09 03:02 | CT ---
EXAMINATION TYPE: CT abdomen pelvis w con DATE OF EXAM: 06/09/2021 COMPARISON: None HISTORY: lower abdominal pain. 3 weeks. prior US on PACS. CT DLP: 764.50 mGycm Automated exposure control for dose reduction was used. CONTRAST: Performed with IV Contrast, patient injected with 100ml mL of Isovue 300. Images obtained from the diaphragm to the floor the pelvis with IV contrast. The lung bases are clear of infiltrate. There is minimal subsegmental atelectasis on the right side. Heart size is normal. There is no pericardial effusion. Liver spleen stomach pancreas appear intact. The bile ducts are not dilated. Gallbladder appears absent. There is small calcified splenic granulom a. There is no adrenal mass. Kidneys show satisfactory contrast opacification. There is no hydronephrosi s. Ureters are not dilated. There is no retroperitoneal adenopathy. Bladder distends smoothly. Uterus is anteverted. There is no inguinal hernia. Lumbar vertebra have normal alignment. There is no compression fracture. The bony pelvis is intact. T he hip joints are intact. There is no evidence of a pelvic mass. There is no mesenteric edema. There is no ascites or free air. I see no evidence of a bowel obstruction. The terminal ileum appears intact. Appendix is not clearly seen. There is no evidence of a thickened appendix. IMPRESSION: Appendix not seen. No sign of appendicitis. No evidence of acute abdomen and pelvis.
[2021-06-09] MEDS ORDERED: traMADol 50 MG STARTER PACK 3 TAB BTL PO STA (04:00)
[2021-06-09 04:15] VITALS: BP 94/63; PULSE 77; TEMP 98.1
== END 2021-06-09 04:06 | disposition home or self-care (01) ==
LOC: EC 22:44
DX: N93.8 Other specified abnormal uterine and vaginal bleeding (principal); N83.209 Unspecified ovarian cyst, unspecified side; J45.909 Unspecified asthma, uncomplicated; F32.9 Major depressive disorder, single episode, unspecified; F41.9 Anxiety disorder, unspecified; F17.200 Nicotine dependence, unspecified, uncomplicated; Z88.6 Allergy status to analgesic agent
CPT/HCPCS: 36415; 74177; 76830; 80053; 81001; 81025; 84702; 85025; 85610; 85730; 86850; 86900; 86901; 93976; 96361; 96374; 99284

== ENCOUNTER 2021-11-17 00:12 | Emergency (ER) | payer BC, OTHER ==
--- NOTE | 2021-11-17 00:54 | XR ---
EXAMINATION TYPE: XR chest 2V DATE OF EXAM: 11/17/2021 COMPARISON: 02/27/2021 HISTORY: Cough TECHNIQUE: 2 views FINDINGS: Heart and mediastinum are normal lungs are clear of infiltrate. There is no hilar mass. The re is no pleural effusion. Bony thorax is intact. IMPRESSION: No active cardiopulmonary disease. No change.
[2021-11-17] MEDS ORDERED: ONDANSETRON 4 MG ODT STARTER PACK 2 TAB BTL PO STA (02:47)
[2021-11-17] MEDS ORDERED: dexAMETHasone 2 MG TAB PO STA (02:47)
[2021-11-17] MEDS ORDERED: ACETAMINOPHEN TAB 325 MG TAB PO STA (02:47)
[2021-11-17] MEDS ORDERED: IBUPROFEN 600 MG STARTER PACK 4 TAB BTL PO STA (02:47)
[2021-11-17 02:49] VITALS: RESP 18
--- NOTE | 2021-11-17 02:49 | ED ---
General Adult HPI - General Chief complaint: Shortness of Breath Stated complaint: Shortness of Breath, nausea Time Seen by Provider: 11/17/21 01:58 Source: patient Mode of arrival: ambulatory Limitations: no limitations - History of Present Illness Initial comments: 31-year-old female patient presents to the emergency department today for evaluation of upper respiratory symptoms and fever for the last 2 days. States she has cough and mild shortness of breath. Denies any chest pain. Denies dizziness or weakness. States she has been nauseated denies vomiting. She does have a history of liver cancer and has been in remission since the . No current chemotherapy. She states that she did take ago prior to arrival without relief of symptoms. Denies any chance of . - Related Data Previous Rx's Medication Instructions Recorded Acetaminophen-Codeine 300-30mg 1 tab PO Q4H PRN #16 tablet 02/27/21 [Tylenol w/codeine #3] Ondansetron Odt [Zofran ODT] 4 mg PO Q8HR PRN #10 tab 02/27/21 Promethazine [Phenergan] 25 mg PO Q6HR #12 tablet 03/01/21 Promethazine [Phenergan] 25 mg PO Q6HR #12 tablet 03/01/21 Dexamethasone 6 mg PO DAILY #9 tablet 11/17/21 Ondansetron [Zofran ODT] 4 mg PO Q8HR PRN #20 tab 11/17/21 Allergies Allergy/AdvReac Type Severity Reaction Status Date / Time aspirin AdvReac Rash/Hives Verified 11/17/21 00:30 peanut AdvReac Unknown Verified 11/17/21 00:30 Review of Systems ROS Statement: Those systems with pertinent positive or pertinent negative responses have been documented in the HPI. ROS Other: All systems not noted in ROS Statement are negative. 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 Absent: respiratory distress, wheezes, rales, rhonchi, stridor Cardiovascular Exam: Present: normal rhythm, tachycardia, normal heart sounds. Absent: systolic murmur, diastolic murmur, rubs, gallop, clicks GI/Abdominal exam: Present: soft, normal bowel sounds. Absent: distended, tenderness, guarding, rebound, rigid Neurological exam: Present: alert, oriented X3, CN II-XII intact Psychiatric exam: Present: normal affect, normal mood Skin exam: Present: warm, dry, intact, normal color. Absent: rash Course Vital Signs 11/17/21 11/17/21 11/17/21 00:26 02:45 03:08 Temperature 99.9 F H 99 F Pulse Rate 101 H 98 Respiratory 20 18 18 Rate Blood Pressure 122/72 128/76 O2 Sat by Pulse 100 Oximetry Medical Decision Making - Medical Decision Making 31-year-old female patient presents to the emergency department today for evaluation of cough, congestion, fever, chills. She did test positive for COVID-19. Chest x-ray was negative. Unfortunately at this time she does not meet criteria to receive monoclonal antibodies. She'll be given prescriptions for symptom relief and instructions for supportive care. She is instructed to follow-up with the primary care physician for recheck in 1-2 days. Return parameters discussed in detail. She verbalizes understanding and agrees with this plan. My attending is Dr. Landa. - Lab Data Lab Results 11/17/21 Range/Units 00:33 Coronavirus (PCR) Detected A (Not Detectd) - Radiology Data Radiology results: report reviewed, image reviewed Two-view x-ray of the chest is obtained. Report was reviewed in its entirety. Impression by Dr. Pierre shows no active cardiopulmonary disease. No change. Disposition Clinical Impression: COVID-19 Disposition: HOME SELF-CARE Condition: Good Instructions (If sedation given, give patient instructions): Coronavirus Disease 2019 (COVID-19) Additional Instructions: Tips to help you feel better: -Maintain adequate fluid intake - especially water. -Rest, you are healing your body will require extra sleep. -Eat even if you do not feel like it - broth, jello, toast are fine if you cannot eat full meals. -Take tylenol and motrin alternating (if you have no allergies or have not been instructed to avoid these medications) to help with body aches and fevers. -Obtain over the counter vitamin C, zinc, and vitamin D3. -Take medications as prescribed. Follow-up with your primary care physician for recheck in 1-2 days. Return for any new, worsening, or concerning symptoms. Prescriptions: Dexamethasone 6 mg PO DAILY #9 tablet Ondansetron [Zofran ODT] 4 mg PO Q8HR PRN #20 tab PRN Reason: Nausea Is patient prescribed a controlled substance at d/c from ED?: No Referrals: Susie Muller MD [Primary Care Provider] - 1-2 days Time of Disposition: 02:49
[2021-11-17 03:09] VITALS: BP 128/76; PULSE 98; TEMP 99
== END 2021-11-17 03:08 | disposition home or self-care (01) ==
LOC: EC 00:12
DX: U07.1 COVID-19 (principal); J45.909 Unspecified asthma, uncomplicated; F41.9 Anxiety disorder, unspecified; F32.A Depression, unspecified; F20.9 Schizophrenia, unspecified
CPT/HCPCS: 87635; 71046; 99285; J8540; S0119

== ENCOUNTER 2021-11-23 16:55 | Emergency (ER) | payer BC, OTHER ==
--- NOTE | 2021-11-23 18:22 | XR ---
EXAMINATION TYPE: XR chest 2V DATE OF EXAM: 11/23/2021 COMPARISON: 11/17/2021 HISTORY: Cough TECHNIQUE: Frontal and lateral views of the chest are obtained. FINDINGS: There is no focal air space opacity, pleural effusion, or pneumothorax seen. The cardiac silhouette size is within normal limits. The osseous structures are intact. IMPRESSION: No acute cardiopulmonary process.
--- NOTE | 2021-11-23 20:59 | ED ---
General Adult HPI - General Chief complaint: Chest Pain Stated complaint: Chest Pain,Back Pain,Fatigue Source: patient Mode of arrival: ambulatory Limitations: no limitations - History of Present Illness Initial comments: This 31-year-old female presents with a complaint of some pain into her chest and back region. She states that she was diagnosed with coving to one week ago in our emergency department. She has had increased coughing without production recently. She complains of some moderate fatigue and myalgias and nausea. She denies any current shortness of breath. There is no leg pain or swelling. No history of DVT or PE. She denies any loss of taste or smell. This is the second time that she has had COVID. She has been taking steroids as well as her albuterol inhaler. She had some leftover Tylenol No. 3 and has been taking this as well as some Motrin with limited relief. She denies any other complaints or modifying factors. - Related Data Previous Rx's Medication Instructions Recorded Acetaminophen-Codeine 300-30mg 1 tab PO Q4H PRN #16 tablet 02/27/21 [Tylenol w/codeine #3] Ondansetron Odt [Zofran ODT] 4 mg PO Q8HR PRN #10 tab 02/27/21 Promethazine [Phenergan] 25 mg PO Q6HR #12 tablet 03/01/21 Promethazine [Phenergan] 25 mg PO Q6HR #12 tablet 03/01/21 Dexamethasone 6 mg PO DAILY #9 tablet 11/17/21 Ondansetron [Zofran ODT] 4 mg PO Q8HR PRN #20 tab 11/17/21 traMADol HCl [Ultram] 50 - 100 mg PO Q6H PRN #15 tab 11/23/21 Allergies Allergy/AdvReac Type Severity Reaction Status Date / Time aspirin AdvReac Rash/Hives Verified 11/23/21 17:44 peanut AdvReac Unknown Verified 11/23/21 17:44 Review of Systems ROS Statement: Those systems with pertinent positive or pertinent negative responses have been documented in the HPI. ROS Other: All systems not noted in ROS Statement are negative. 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 VITAL SIGNS: Heart rate, blood pressure, respiratory rate reviewed as recorded in nurse's notes. EYES: Pupils are round and reactive. Extraocular movements are intact. No conjunctival / lid redness or swelling. ENT: No external evidence of injury, swelling, or ecchymosis. Airway is patent. Throat is clear. NECK: Nontender. No swelling or evidence of injury. No subcutaneous emphysema. Trachea is midline. No thyroid mass. HEART: Regular rate and rhythm. Good peripheral pulses. Chest: There is some mild tenderness upon palpation of the chest both anteriorly and posteriorly. No subcutaneous emphysema. LUNGS/CHEST: Breath sounds clear and equal bilaterally. No rales, rhonchi, or wheezes. No ecchymosis, subcutaneous emphysema, or tenderness. ABDOMEN: Abdomen soft without tenderness. No palpable masses or organomegaly. No peritoneal signs. No abdominal wall swelling or ecchymosis. EXTREMITIES: No extremity tenderness. Normal muscle tone and function. No tho racolumbar tenderness. NEUROLOGIC: Sensation is grossly intact. Cranial nerve exam reveals face is symmetrical, tongue is midline, speech is clear. SKIN: No abrasions or ecchymosis is noted. No induration or masses noted. PSYCHIATRIC: Alert and oriented. Appropriate behavior and judgment. Limitations: no limitations Course Vital Signs 11/23/21 17:46 Temperature 99.0 F Pulse Rate 84 Respiratory 20 Rate Blood Pressure 101/62 O2 Sat by Pulse 99 Oximetry Medical Decision Making - Medical Decision Making The patient was seen and examined. Old records are reviewed. A chest x-ray is done which does not show any acute processes. Oxygenation is stable. It is felt as though the patient does have symptoms consistent with Covid. It is felt as though she is at a 7 and her symptoms certainly could last longer. It appears as though she is on good treatment currently. Her chest pain is easily reproducible with palpation. She will be prescribed some Ultram for additional pain. Return parameters are discussed. Close follow-up recommended. Disposition Clinical Impression: COVID-19, Chest wall pain Disposition: HOME SELF-CARE Condition: Good Instructions (If sedation given, give patient instructions): Coronavirus Disease 2019 (COVID-19), Chest Wall Pain (ED) Prescriptions: traMADol HCl [Ultram] 50 - 100 mg PO Q6H PRN #15 tab PRN Reason: Pain Is patient prescribed a controlled substance at d/c from ED?: Yes When asked, does pt state using other controlled substances?: No If prescribed controlled substance>3 days was MAPS reviewed?: Prescribed <3 Days Referrals: Anahi Cagle FNPBC [Primary Care Provider] - 1-2 days Time of Disposition: 20:58
[2021-11-23] MEDS ORDERED: SODIUM CHLORIDE 0.9% 50 ML IVPB ONE (21:30)
[2021-11-23] MEDS ORDERED: CASIRIVIMAB (REGN10933) (EUA) 600 MG, IMDEVIMAB (REGN10987) (EUA) 600 MG in SODIUM CHLO... IVPB ONE (21:30)
[2021-11-23 23:13] VITALS: BP 106/57; PULSE 89; RESP 16; TEMP 98.9
== END 2021-11-24 00:14 | disposition home or self-care (01) ==
LOC: EC 16:55
DX: U07.1 COVID-19 (principal); J45.909 Unspecified asthma, uncomplicated; Z79.899 Other long term (current) drug therapy
CPT/HCPCS: 93005; 71046; 99285; 96360; Q0244

== ENCOUNTER 2022-01-12 00:21 | Emergency (ER) | payer BC, OTHER ==
[2022-01-12 00:25] VITALS: RESP 18
[2022-01-12] MEDS ORDERED: SODIUM CHLORIDE 0.9% 1,000 ML IV STA (00:39)
[2022-01-12] MEDS ORDERED: diphenhydrAMINE 50 MG/ML 1 ML VIAL IVP STA (00:39)
[2022-01-12] MEDS ORDERED: methylPREDNISolone SOD SUCCI 125 MG/2 ML VIAL IV STA (00:43)
--- NOTE | 2022-01-12 00:47 | ED ---
General Adult HPI - General Chief complaint: Headache Stated complaint: Headache Time Seen by Provider: 01/12/22 00:29 Source: patient Mode of arrival: ambulatory - History of Present Illness Initial comments: 31-year-old female presents to the emergency room with complaints of diffuse headache that started at noon today. She states is similar to her previous migraine headaches. She states she has migraine headaches at least 2 a week. She is on daily medications. She denies any fevers, vomiting or diarrhea. Location: head Radiation: non-radiation Severity scale (1-10): 9 Quality: aching Consistency: constant Improves with: none Worsens with: none Associated Symptoms: denies other symptoms - Related Data Previous Rx's Medication Instructions Recorded Acetaminophen-Codeine 300-30mg 1 tab PO Q4H PRN #16 tablet 02/27/21 [Tylenol w/codeine #3] Ondansetron Odt [Zofran ODT] 4 mg PO Q8HR PRN #10 tab 02/27/21 Promethazine [Phenergan] 25 mg PO Q6HR #12 tablet 03/01/21 Promethazine [Phenergan] 25 mg PO Q6HR #12 tablet 03/01/21 Dexamethasone 6 mg PO DAILY #9 tablet 11/17/21 Ondansetron [Zofran ODT] 4 mg PO Q8HR PRN #20 tab 11/17/21 traMADol HCl [Ultram] 50 - 100 mg PO Q6H PRN #15 tab 11/23/21 Allergies Allergy/AdvReac Type Severity Reaction Status Date / Time aspirin AdvReac Rash/Hives Verified 11/23/21 17:44 peanut AdvReac Unknown Verified 11/23/21 17:44 Review of Systems ROS Statement: Those systems with pertinent positive or pertinent negative responses have been documented in the HPI. ROS Other: All systems not noted in ROS Statement are negative. 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 Absent: scleral icterus, conjunctival injection, periorbital swelling, periorbital tenderness ENT exam: Present: normal exam, normal oropharynx, mucous membranes moist Neck exam: Present: normal inspection, full ROM. Absent: tenderness, meningismus, lymphadenopathy, thyromegaly Respiratory exam: Present: normal lung sounds bilaterally. Absent: respiratory distress, accessory muscle use Cardiovascular Exam: Present: regular rate, normal heart sounds GI/Abdominal exam: Present: soft. Absent: distended, tenderness Extremities exam: Present: normal capillary refill. Absent: pedal edema Back exam: Present: normal inspection, full ROM. Absent: tenderness, CVA tenderness (R), CVA tenderness (L), rash noted Neurological exam: Present: alert, oriented X3 Expanded Patient oriented to: Present: person, place, time Speech: Present: fluid speech Cranial nerves: EOM's Intact: Normal, Gag Reflex: Normal, Tongue Deviation: Normal Motor strength exam: RUE: 5, LUE: 5, RLE: 5, LLE: 5 Eye Response: (4) open spontaneously Motor Response: (6) obeys commands Verbal Response: (5) oriented [place] Total: 15 Psychiatric exam: Present: normal affect, normal mood Skin exam: Present: warm, intact, normal color. Absent: cyanosis, diaphoretic, petechiae, pallor Course Vital Signs 01/12/22 01/12/22 01/12/22 00:22 01:10 02:28 Temperature 97.8 F 98.7 F Pulse Rate 90 89 81 Respiratory 18 18 18 Rate Blood Pressure 123/79 107/75 124/84 O2 Sat by Pulse 98 100 100 Oximetry Medical Decision Making - Medical Decision Making Patient presents with complaints of a migraine headache similar to her previous headaches that started at noon today. She has no focal neurological deficits. No fevers or cancer history. She was given Toradol, Benadryl and Solu-Medrol and a liter of IV fluids. She states that her headache is better. Vital signs are stable. She'll be discharged home to follow up with her primary care doctor and continue her prescribed medications. Return to the emergency room with any new or concerning symptoms. Disposition Clinical Impression: Headache Disposition: HOME SELF-CARE Condition: Good Instructions (If sedation given, give patient instructions): Acute Headache (ED) Additional Instructions: Continue taking your previously prescribed medications. Follow up with your primary care doctor this week. If you are having more than 15 headaches a month please discuss this with your primary care doctor. Is patient prescribed a controlled substance at d/c from ED?: No Referrals: Susie Muller MD [Primary Care Provider] - 1-2 days Time of Disposition: 01:49
[2022-01-12] MEDS ORDERED: KETOROLAC 15 MG/ML 1 ML VIAL IVP STA (00:56)
[2022-01-12 02:59] VITALS: BP 124/84; PULSE 81; TEMP 98.7
== END 2022-01-12 02:28 | disposition home or self-care (01) ==
LOC: EC 00:21
DX: R51.9 Headache, unspecified (principal); J45.909 Unspecified asthma, uncomplicated; F32.A Depression, unspecified; F41.9 Anxiety disorder, unspecified; F20.9 Schizophrenia, unspecified; Z79.899 Other long term (current) drug therapy
CPT/HCPCS: 99283; 96374; 96375 ×2; 96361; J1200; J2930; J1885

== ENCOUNTER 2022-08-28 15:32 | Emergency (ER) | payer BC, OTHER ==
[2022-08-28 15:47] VITALS: TEMP 98.1
--- NOTE | 2022-08-28 18:24 | ED ---
General Adult HPI - General Chief complaint: Neuro Symptoms/Deficit Stated complaint: Neuro issues Time Seen by Provider: 08/28/22 18:00 Source: patient Mode of arrival: ambulatory Limitations: no limitations - History of Present Illness Initial comments: 32 old female with past history of schizophrenia, hepatoblastoma, asthma who presents emergency Department with stuttering. States that she had a stye on her right I drained on Tuesday. They administer local anesthesia. The patient then had a syncopal episode and when she awoke she was very confused. She began having stuttering, memory issues. She went to [facility] yesterday. CT was performed as well as laboratory studies. They did admit the patient for MRI. They state that she did not receive great care. They were unable to perform the MRI but did not mention this to the patient's. She was displeased with her care and therefore left AGAINST MEDICAL ADVICE. She denies any worsening symptoms. No headaches or visual changes. Does have a history of migraines. No nausea or vomiting. No weakness in her extremities. No other alleviating, precipitating laughing factors - Related Data Previous Rx's Medication Instructions Recorded Acetaminophen-Codeine 300-30mg 1 tab PO Q4H PRN #16 tablet 02/27/21 [Tylenol w/codeine #3] Ondansetron Odt [Zofran ODT] 4 mg PO Q8HR PRN #10 tab 02/27/21 Promethazine [Phenergan] 25 mg PO Q6HR #12 tablet 03/01/21 Promethazine [Phenergan] 25 mg PO Q6HR #12 tablet 03/01/21 Ondansetron [Zofran ODT] 4 mg PO Q8HR PRN #20 tab 11/17/21 dexAMETHasone [Dexamethasone] 6 mg PO DAILY #9 tablet 11/17/21 traMADol HCl [Ultram] 50 - 100 mg PO Q6H PRN #15 tab 11/23/21 Allergies Allergy/AdvReac Type Severity Reaction Status Date / Time aspirin AdvReac Rash/Hives Verified 11/23/21 17:44 peanut AdvReac Unknown Verified 11/23/21 17:44 Review of Systems ROS Statement: Those systems with pertinent positive or pertinent negative responses have been documented in the HPI. ROS Other: All systems not noted in ROS Statement are negative. 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 Absent: scleral icterus, conjunctival injection, periorbital swelling ENT exam: Present: normal exam, mucous membranes moist Neck exam: Present: normal inspection. Absent: tenderness, meningismus, lymphadenopathy Respiratory exam: Present: normal lung sounds bilaterally. Absent: respiratory distress, wheezes, rales, rhonchi, stridor Cardiovascular Exam: Present: regular rate, normal rhythm, normal heart sounds. Absent: systolic murmur, diastolic murmur, rubs, gallop, clicks GI/Abdominal exam: Present: soft, normal bowel sounds. Absent: distended, tenderness, guarding, rebound, rigid Extremities exam: Present: normal inspection, full ROM, normal capillary refill. Absent: tenderness, pedal edema, joint swelling, calf tenderness Back exam: Present: normal inspection Neurological exam: Present: alert, oriented X3, CN II-XII intact, other (Broken speech due to stuttering. Answers are appropriate) Psychiatric exam: Present: normal affect, normal mood Skin exam: Present: warm, dry, intact, normal color. Absent: rash Course Vital Signs 08/28/22 08/28/22 15:38 18:56 Temperature 98.1 F 98.1 F Pulse Rate 105 H 98 Respiratory 18 16 Rate Blood Pressure 132/78 98/64 O2 Sat by Pulse 100 99 Oximetry Medical Decision Making - Medical Decision Making Upon arrival patient was placed into room 7. Thorough history and physical exam was performed. I did review the patient's studies from [facility]. Did recommend repeating laboratory studies. Informed the patient that I could admits to get a neurology consultation however MRI immediately completed until Tuesday. She reports that she does have an appointment with her neurologist on Tuesday, Dr. Rush. Patient states that MRI will be delayed that she will follow-up with her neurologist today for evaluation. I do believe that this is appropriate. Patient is informed that if she has any new or worsening symptoms she should return to the emergency room immediately. Patient was agreeable and she was discharged home in stable condition Disposition Clinical Impression: Stutter Disposition: HOME SELF-CARE Condition: Stable Instructions (If sedation given, give patient instructions): Disorders of Consciousness (DC) Additional Instructions: Please follow-up with your neurologist on Tuesday at your scheduled appointment. They may want to complete an MRI. Take a baby aspirin a day. Return for any new or worsening symptoms Is patient prescribed a controlled substance at d/c from ED?: No Referrals: None,Stated [Primary Care Provider] - 1-2 days Time of Disposition: 18:24
[2022-08-28 18:57] VITALS: BP 98/64; PULSE 98; RESP 16
== END 2022-08-28 18:56 | disposition home or self-care (01) ==
LOC: EC 15:32
DX: F80.81 Childhood onset fluency disorder (principal); J45.909 Unspecified asthma, uncomplicated; F32.A Depression, unspecified; F41.9 Anxiety disorder, unspecified; F20.9 Schizophrenia, unspecified; Z91.010 Allergy to peanuts; Z88.6 Allergy status to analgesic agent; Z87.891 Personal history of nicotine dependence
CPT/HCPCS: 99283

== ENCOUNTER → 2022-09-06 | Outpatient (CLI) | payer BC, OTHER ==
--- NOTE | 2022-09-07 08:09 | MR ---
EXAMINATION TYPE: MR brain wo con DATE OF EXAM: 09/06/2022 12:09 PM COMPARISON: CT head and CT angiogram from 08/28/2022. CLINICAL INDICATION:Female, 32 years old with history of R55 vasovagal syncope F80.81 stuttering. TECHNIQUE: Multi planar, multi sequence imaging was performed through the brain including: T1, T2, In version recovery, Diffusion weighted imaging, and gradient echo imaging. No gadolinium was given. FINDINGS: The agarwal-white junctions, ventricular system, and cisterns appear unremarkable. Midline structures sh ow no abnormality. Diffusion-weighted imaging shows no evidence of restricted diffusion. The suscepti bility weighted images do not reveal any evidence for micro-hemorrhage. The bone marrow signal is within normal limits. The paranasal sinuses and globes are unremarkable. IMPRESSION: No evidence of intracranial mass or acute/subacute infarct.
== END | disposition home or self-care (01) ==
LOC: RADMRIMAIN 11:06
PROVIDERS: ATTEND Psychiatry & Neurology Neurology
DX: R55 Syncope and collapse (principal); F80.81 Childhood onset fluency disorder
CPT/HCPCS: 70551

== ENCOUNTER 2022-09-14 13:28 | Observation (INO) | payer BC, OTHER ==
[2022-09-14 17:24] LABS: Basophils % (A) 0 %; Eosinophils # (A) 0.1 k/uL (0-0.7); Eosinophils % (A) 2 %; HCT 34.6 % (34.0-46.0); HGB 12.5 gm/dL (11.4-16.0); Lymphocytes # (A) 1.3 k/uL (1.0-4.8); Lymphocytes % (A) 25 %; MCH 31.3 pg (25.0-35.0); MCHC 36.2 g/dL (31.0-37.0); MCV 86.6 fL (80.0-100.0); Mean Platelet Volume 10.8; Monocytes # (A) 0.2 k/uL (0-1.0); Monocytes % (A) 3 %; Neutrophils # (A) 3.5 k/uL (1.3-7.7); Neutrophils % (A) 69 %; Platelet Count 186 k/uL (150-450); RBC 3.99 m/uL (3.80-5.40); RDW 12.4 % (11.5-15.5)
[2022-09-14 17:47] LABS: ALT 15 U/L (4-34); African American GFR (CKD) >90 (>60 ml/min/1.73 sqM); Albumin 4.1 g/dL (3.5-5.0); Anion Gap 7 mmol/L; Blood Urea Nitrogen 13 mg/dL (7-17); Calcium 8.8 mg/dL (8.4-10.2); Carbon Dioxide 27 mmol/L (22-30); Chloride 105 mmol/L (98-107); Glucose 120 mg/dL (74-99); Non-African American GFR(CKD) >90 (>60 ml/min/1.73 sqM); Sodium 139 mmol/L (137-145); Total Bilirubin 0.5 mg/dL (0.2-1.3); Total Protein 6.4 g/dL (6.3-8.2)
--- NOTE | 2022-09-14 17:47 | ED ---
Neuro HPI - General Chief Complaint: Neuro Symptoms/Deficit Stated Complaint: sent by neurologist Time Seen by Provider: 09/14/22 16:26 Source: patient Mode of arrival: ambulatory Limitations: no limitations - History of Present Illness Is the patient presenting with stroke symptoms?: No Initial Comments: Patient is a 32-year-old female with past medical history of schizophrenia, hepatoblastoma, and asthma who presents to the emergency department for evaluation of stuttering. He had a stye drained from her right eye on 08/23. During local administration of anesthesia patient had a syncopal episode. When she woke up she was apparently very confused and having stuttering/memory issues. Patient was initially evaluated at [facility] but does not like her care. A CT of the brain was performed which was apparently normal. She was then evaluated in our emergency department on 08/28 and admission was discussed however MRI would be delayed. Patient was discharged with plan to see her neurologist Dr. Rush. Patient states she had an MRI on 09/06. I did review this which shows no evidence of intracranial mass or acute/subacute infarct. Patient states her neurologist sent her in for further evaluation. Patient reports consistent stuttering since she was last evaluated. States she feels tingling on the bottom of both of her feet. She denies weakness in her extremities and change in gait. Has history of migraines however currently denies migraines, nausea, vomiting, visual changes. Patient has no other concerns. - Related Data Allergies/Adverse Reactions: Allergies Allergy/AdvReac Type Severity Reaction Status Date / Time aspirin AdvReac Rash/Hives Verified 09/14/22 17:57 peanut AdvReac Unknown Verified 09/14/22 17:57 Review of Systems ROS Statement: Those systems with pertinent positive or pertinent negative responses have been documented in the HPI. ROS Other: All systems not noted in ROS Statement are negative. General Exam Limitations: no limitations General appearance: alert, in no apparent distress, other (stuttering ) Head exam: Present: atraumatic, normocephalic, normal inspection Eye exam: Present: normal appearance, PERRL, EOMI. Absent: scleral icterus, conjunctival injection, periorbital swelling Respiratory exam: Present: normal lung sounds bilaterally. Absent: respiratory distress, wheezes, rales, rhonchi, stridor Cardiovascular Exam: Present: regular rate, normal rhythm, normal heart sounds. Absent: systolic murmur, diastolic murmur, rubs, gallop, clicks Extremities exam: Present: normal inspection, normal capillary refill. Absent: tenderness, joint swelling Neurological exam: Present: alert, oriented X3, CN II-XII intact Expanded Sensory exam: Upper Extremity Light Touch: Normal, Lower Extremity Light Touch: Normal Motor strength exam: RUE: 5, LUE: 5, RLE: 5, LLE: 5 Psychiatric exam: Present: normal affect, normal mood Skin exam: Present: warm, dry, intact, normal color. Absent: rash Stroke MDM - Lab Data Result diagrams: 09/14/22 17:12 09/14/22 17:12 Lab Results 09/14/22 09/14/22 Range/Units 17:12 17:12 WBC 5.0 (3.8-10.6) k/uL RBC 3.99 (3.80-5.40) m/uL Hgb 12.5 (11.4-16.0) gm/dL Hct 34.6 (34.0-46.0) % MCV 86.6 (80.0-100.0) fL MCH 31.3 (25.0-35.0) pg MCHC 36.2 (31.0-37.0) g/dL RDW 12.4 (11.5-15.5) % Plt Count 186 (150-450) k/uL MPV 10.8 Neutrophils % 69 % Lymphocytes % 25 % Monocytes % 3 % Eosinophils % 2 % Basophils % 0 % Neutrophils # 3.5 (1.3-7.7) k/uL Lymphocytes # 1.3 (1.0-4.8) k/uL Monocytes # 0.2 (0-1.0) k/uL Eosinophils # 0.1 (0-0.7) k/uL Basophils # 0.0 (0-0.2) k/uL Sodium 139 (137-145) mmol/L Potassium 3.7 (3.5-5.1) mmol/L Chloride 105 (98-107) mmol/L Carbon Dioxide 27 (22-30) mmol/L Anion Gap 7 mmol/L BUN 13 (7-17) mg/dL Creatinine 0.55 (0.52-1.04) mg/dL Est GFR (CKD-EPI)AfAm >90 (>60 ml/min/1.73 sqM) Est GFR (CKD-EPI)NonAf >90 (>60 ml/min/1.73 sqM) Glucose 120 H (74-99) mg/dL Calcium 8.8 (8.4-10.2) mg/dL Total Bilirubin 0.5 (0.2-1.3) mg/dL AST 25 (14-36) U/L ALT 15 (4-34) U/L Alkaline Phosphatase 69 (38-126) U/L Total Protein 6.4 (6.3-8.2) g/dL Albumin 4.1 (3.5-5.0) g/dL - Medical Decision Making This is a 32-year-old female presenting for evaluation of stuttering. Patient has broken speech with stuttering. Laboratory studies obtained which are unremarkable. I did speak with Dr. Arias personally who states recent MRI and EEG were normal. States patient 's has been very concerned with patient's stuttering as well as dizziness and lethargy. Dr. Arias feels that stuttering is possibly related to psychiatric etiology. She would like other medical process to be ruled out as well as neurologic and psychiatric evaluation. Patient denies dizziness and lethargy currently. She denies history of heart disease. She denies suicidal or homicidal ideation. She does admit to visual hallucinations which she describes as a shadow man. She does not take any psychiatric medication. She is agreeable to admission for observation. Case discussed with Dr. Keita who accepts admission. Neurology and psychiatry are on consult. Dr. Mckenzie is my attending. 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 Past Psychological History: Anxiety, Depression, Schizophrenia Smoking Status: Former smoker Past Alcohol Use History: Occasional Past Drug Use History: None Reported Course Vital Signs 09/14/22 13:37 Temperature 98.7 F Pulse Rate 50 L Respiratory 20 Rate Blood Pressure 146/86 O2 Sat by Pulse 99 Oximetry Disposition Clinical Impression: Stuttering, Dizziness, Paresthesia, Lethargy Disposition: ADMITTED IP TO THIS HOSP Condition: Good Is patient prescribed a controlled substance at d/c from ED?: No Referrals: None,Stated [Primary Care Provider] - 1-2 days Time of Disposition: 19:11 Decision Time: 17:47
[2022-09-14 18:03] LABS: AST 25 U/L (14-36); Alkaline Phosphatase 69 U/L (38-126); Potassium 3.7 mmol/L (3.5-5.1)
[2022-09-14] MEDS ORDERED: NALOXONE 0.4 MG/ML 1 ML VIAL IV PRN (19:04)
--- NOTE | 2022-09-15 04:51 | P.HPIM ---
History of Present Illness H&P Date: 09/14/22 Chief Complaint: stuttering 32 year old female with schizophrenia , off her meds patient comes in upon recommendation of her neurologist for neuro eval and psych eval . patient has been reporting symptoms of stuttering and tingling bilateral feet for the past 3 weeks , since she had a stye drained under local anasthesia , followed by a syncopal episodes woke up confused and started stuttering with some memory loss since then . she also admits to auditory hallucination s( where she hears someone calling her name, ) and visual hallucinations ( she sees shadows of people ) . denies any suicidal ideation . she admits to history of schizophrenia and stopped her meds a while back as she could not tolerate them . otherwise denies any headache , changes in vision or hearing , denies any other focal neuro deficits other than mentioned above, denies any head injuries or falls. as OP she had MRI of the brain done , no acute pathology shown, and EEG was within normal limits. she continues to report symptoms of dizziness, fatigue , and stuttering . denies any illicit drugs , smoking or alcohol Review of Systems Pertinent positives as noted in HPI. 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 Past Psychological History: Anxiety, Depression, Schizophrenia Smoking Status: Former smoker Past Alcohol Use History: Occasional Past Drug Use History: None Reported - Past Family History family Additional Family Medical History / Comment(s): no neurologic disorders reported Medications and Allergies Home Medications Medication Instructions Recorded Confirmed Type Albuterol Inhaler [Ventolin Hfa 2 puff INHALATION RT-Q6H PRN 09/14/22 09/14/22 History Inhaler] Fluticasone Propion/Salmeterol 1 puff INHALATION RT-BID 09/14/22 09/14/22 History [Advair 100-50 Diskus] Topiramate 50 mg PO BID 09/14/22 09/14/22 History Allergies Allergy/AdvReac Type Severity Reaction Status Date / Time aspirin AdvReac Rash/Hives Verified 09/14/22 17:57 peanut AdvReac Unknown Verified 09/14/22 17:57 Physical Exam Vitals: Vital Signs Temp Pulse Resp BP Pulse Ox 09/14/22 13:37 98.7 F 50 L 20 146/86 99 Intake and Output 09/14/22 09/14/22 09/14/22 06:59 14:59 22:59 Other: Weight 68.039 kg Constitutional: No acute distress, very pleasant and cooperative , difficulty with speech due to stuttering Eyes: Anicteric sclerae, moist conjunctiva, Pupils equal round reactive to light ENMT: NC/AT Oropharynx clear, no erythema, or exudates Neck: Supple, no masses, or JVD No carotid bruits No thyromegaly Lungs: Clear to auscultation Clear to percussion Normal respiratory effort, no accessory muscle use Cardiovascular: Heart regular in rate and rhythm, No murmurs, gallops, or rubs No peripheral edema Abdominal: Soft Nontender, no guarding, rebound or rigidity Abdomen moving with respiration Normoactive bowel sounds No hepatomegaly, No splenomegaly No palpable mass No abdominal wall hernia noted Skin: Normal temperature, tone, texture, turgor No induration No subcutaneous nodules No rash, lesions No ulcers Extremities: No digital cyanosis No clubbing Pedal pulses intact and symmetrical Radial pulses intact and symmetrical No calf tenderness Psychiatric: Alert and oriented to person, place and time Appropriate affect fair judgement Neuro Muscles Strength 5/5 in all 4 extremities Sensation to light touch grossly present throughout Cranial nerves II-XII grossly intact Lymphatics: no palpable cervical or supraclavicular lymph nodes Results CBC & Chem 7: 09/14/22 17:12 09/14/22 17:12 Labs: Abnormal Lab Results - Last 24 Hours (Table) 09/14/22 Range/Units 17:12 Glucose 120 H (74-99) mg/dL Assessment and Plan Assessment: acute psychosis auditory and visual hallucination s resume topiramate psych consult stuttering MRI brain no acute pathology EEG no acute pathology neuro consult full code DVT PPX mechanical
[2022-09-15] MEDS ORDERED: TOPIRAMATE 25 MG TAB PO SCH (09:00)
--- NOTE | 2022-09-15 13:07 | P.CNNES ---
History of Present Illness Consult date: 09/15/22 Requesting physician: Madeline Garcia Reason for Consult: Stuttering History of Present Illness: Patient is a 32-year-old female came to the hospital yesterday at 1:28 PM for persistent stuttering. Patient states that she had a syncopal spell on 08/23/2022 when she was at the doctor's office, undergoing drainage of the sty of the left eye, laying in the bed, when she passed out on the table. There was no tongue bite or loss of control of urine. Patient states that when she woke up, she did not know where she was at, did not know her name. This confusion lasted for a few minutes. Patient states that about couple hours after, she started having "word salad". Subsequently a couple days later on August 26 and , she has developed stuttering which has been persistent since then. Patient states that she has history of syncopal spells at the dentist office multiple times when she was being poked. She has not had any syncopal spells related to blood draws. She does have anxiety disorder. No history of seizures. Patient has been on Topamax for last 1 year for migraines. She has smoked 1 pack every 4-5 days for 10 years, quit 1-1/2 years ago. Denies any alcohol use, drugs, marijuana, diabetes or hypertension. Vital signs on arrival blood pressure 146/86, pulse rate 50, temperature 98.7. Blood test shows normal CBC, normal CMP, coronal virus PCR negative. Influenza screen negative. EKG shows sinus rhythm. Patient had a recent MRI of the brain without contrast on 09/06/2022, which was normal. No acute process. I personally reviewed MRI, I agree with the findings. Patient currently takes Topamax 50 mg twice a day, albuterol and Advair. Patient denies any headache as of now. Denies any visual symptoms. She states her feet tingle a little. No fever or chills. Review of Systems Constitutional: Denies chills, Denies fever Eyes: denies blurred vision, denies pain Ears, nose, mouth and throat: Denies headache, Denies sore throat Cardiovascular: Denies chest pain, Denies shortness of breath Respiratory: Denies cough Gastrointestinal: Denies abdominal pain, Denies diarrhea, Denies nausea, Denies vomiting Genitourinary: Denies dysuria, Denies hematuria Musculoskeletal: Denies myalgias Integumentary: Denies pruritus, Denies rash Neurological: Reports as per HPI, Reports paresthesias Psychiatric: Reports anxiety, Reports depression Endocrine: Denies fatigue, Denies weight change Hematologic/Lymphatic: Denies easy bruising Allergic/Immunologic: Denies persistent infections 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 Past Psychological History: Anxiety, Depression, Schizophrenia Smoking Status: Former smoker Past Alcohol Use History: Occasional Past Drug Use History: None Reported - Past Family History family Additional Family Medical History / Comment(s): no neurologic disorders reported Medications and Allergies Home Medications Medication Instructions Recorded Confirmed Type Albuterol Inhaler [Ventolin Hfa 2 puff INHALATION RT-Q6H PRN 09/14/22 09/14/22 History Inhaler] Fluticasone Propion/Salmeterol 1 puff INHALATION RT-BID 09/14/22 09/14/22 History [Advair 100-50 Diskus] Topiramate 50 mg PO BID 09/14/22 09/14/22 History Allergies Allergy/AdvReac Type Severity Reaction Status Date / Time aspirin AdvReac Rash/Hives Verified 09/14/22 17:57 peanut AdvReac Unknown Verified 09/14/22 17:57 Physical Examination - Vital Signs Vital Signs: Vital Signs Temp Pulse Pulse Resp BP BP Pulse Ox 09/15/22 07:05 97.6 F 67 16 102/67 100 09/15/22 03:06 98.0 F 64 16 104/66 99 09/14/22 22:45 98.3 F 74 17 115/76 98 09/14/22 21:53 61 15 129/64 100 09/14/22 13:37 98.7 F 50 L 20 146/86 99 Intake and Output 09/14/22 09/15/22 09/15/22 22:59 06:59 14:59 Intake Total 118 Balance 118 Intake: Oral 118 Other: # Voids 1 Weight 68.039 kg Patient is a young female, in no acute distress. Patient is alert awake oriented to time place and person. Patient has significant stuttering noticed. Patient can name and repeat very well. No aphasia or dysarthria. Attention, concentration and fund of knowledge is adequate. On cranial nerve examination, pupils are equal, round and reacting to light, visual rider are full on confrontation, with no neglect on double simultaneous stimulation. Extraocular muscles are intact with no nystagmus. Face is symmetric, tongue protrudes to the midline. Palatal elevation and sensation n ormal, hearing and shoulder shrug normal, facial sensation normal. On muscle strength testing, there is no pronator drift and the strength is normal in arms and legs distally and proximally. Deep tendon reflexes are symmetric slightly diminished, trace to 1 all over and plantars downgoing. Sensory to touch is equal with no neglect on double simultaneous stimulation. Cerebellar function showed no ataxia for [id number] testing. No dysdiadochokinesia. No ataxia for [id number] testing on either side. Tone and bulk of muscles normal. Gait deferred.. On general examination, there is no carotid bruit or murmur, S1-S2 audible. Chest is clear on consultation. Abdomen is soft nontender. No organomegaly, bowel sounds present. Peripheral pulses are present. No edema. Results - Laboratory Findings CBC and BMP: 09/14/22 17:12 09/14/22 17:12 Abnormal Lab Findings: Abnormal Labs 09/14/22 17:12 Glucose 120 H Assessment and Plan Assessment: * Stuttering of 3 weeks duration, unclear cause. * Syncopal spell on 09/02/2022, followed by stuttering speech. Patient has history of vasovagal type of syncopal spells in the past. * Anxiety disorder * Migraine headaches Plan: * EEG to rule out any epileptiform activity. * Psychiatry to address anxiety disorder. * Patient has been on Topamax for last 1 year, therefore doubt would be the cause of stuttering. * Check TSH, B12, folate * Neurology will follow. Thank you for the consult. Addendum: EEG was performed, which was abnormal. There is intermittent, paroxysmal high amplitude somewhat rhythmic delta and theta activity which is maximal in the frontal region. At times patient has intermittent generalized high amplitude dysrhythmic theta activity seen diffusely in bihemispheric region. This may suggest encephalopathy. Although no clear-cut epileptiform activity was seen, however rhythmic nature may suggest convulsive tendency. We will increase Topamax to 75 mg twice a day. Discussed with patient about results of the EEG.
--- NOTE | 2022-09-15 14:02 | P.CN ---
Psychiatric Consult - . Consult date: 09/15/22 Consult:: 09/15/22 14:02 IDENTIFYING DATA: This patient is a 32-year-old female with a reported history of schizophrenia HISTORY OF PRESENT ILLNESS: The patient presented to the hospital on 09/14/2022 with a chief complaint of stuttering. The patient has been evaluated for this daughter before including a CT of the brain, as well as an MRI of the brain. She received an MRI of the brain last on 09/06/2022 which revealed no acute abnormality. Psychiatry has been consulted for evaluation of stutter. Upon evaluation by this provider, the patient reports that she does have a history of a diagnosis of schizophrenia. She reports that she was diagnosed with schizophrenia back in 2016 when she was admitted to [facility] in [place] for suicidal ideation. She does report a history of visual hallucinations however has denied any hallucinations as of late. She reports no significant history of elizabeth or hypomania. She also denies any significant history of paranoia or other delusions. In regards to her stutter, the patient reports that this is been acute in onset. She reports that she has not had this problem 2 months prior to this presentation. In regards other mood symptoms, the patient is denying any suicidal or homicidal ideation, intention, and/or plan. She reports no significant symptoms of anxiety at this time. She denies any history of physical or emotional or sexual abuse. PAST PSYCHIATRIC HISTORY: Patient has a history of depression and schizophrenia. Question will diagnoses of schizophrenia as the patient is not on any antipsychotic medications and does not present with psychotic symptoms or negative symptoms of schizophrenia. Patient reports 1 prior psychiatric admission in [place] in 2015. She reports one prior attempt at suicide more than 18 years ago. 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 She denies any marijuana use. FAMILY PSYCHIATRIC/SUBSTANCE USE HISTORY: No reported history. SOCIAL HISTORY: Patient is and lives with her and cat. She is currently unemployed. Reports no social issues or concerns. MENTAL STATUS EXAM: General Appearance: Patient appears to be stated age is alert, pleasant, and cooperative. Patient appears to have fair hygiene and grooming wearing hospital gown with fair eye contact. Behavior: Patient is calmly lying in bed without any agitated behavior. Speech: Patient's speech is fluent and nonpressured. Patient has noticeable stutter and at times word finding difficulty. Mood/Affect: Patient reports their mood is "ok", affect is congruent Suicidality/Homicidality: Patient denies having any suicidal or homicidal ideation intent or plan. Perceptions: Patient denies any visual hallucinations and denies any auditory hallucinations Though content/process: There is no evidence of any delusional thought content and thought process is linear and goal-directed. Memory and concentration: AOX3, grossly intact for the purposes of this session. Can spell "WORLD" backwards Judgment and insight: Fair Vital Signs Temp 97.6 F 09/15/22 07:05 Pulse 67 09/15/22 07:05 Resp 16 09/15/22 07:05 BP 102/67 09/15/22 07:05 Pulse Ox 100 09/15/22 07:05 FiO2 Intake & Output 09/14/22 09/15/22 09/15/22 18:59 06:59 18:59 Intake Total 118 Balance 118 Weight 68.039 kg 68.039 kg Intake: Oral 118 Other: # Voids 1 Laboratory Results - Last 24 Hours 09/14/22 09/14/22 09/14/22 17:12 17:12 19:48 WBC 5.0 RBC 3.99 Hgb 12.5 Hct 34.6 MCV 86.6 MCH 31.3 MCHC 36.2 RDW 12.4 Plt Count 186 MPV 10.8 Neutrophils % 69 Lymphocytes % 25 Monocytes % 3 Eosinophils % 2 Basophils % 0 Neutrophils # 3.5 Lymphocytes # 1.3 Monocytes # 0.2 Eosinophils # 0.1 Basophils # 0.0 Sodium 139 Potassium 3.7 Chloride 105 Carbon Dioxide 27 Anion Gap 7 BUN 13 Creatinine 0.55 Est GFR (CKD-EPI)AfAm >90 Est GFR (CKD-EPI)NonAf >90 Glucose 120 H Calcium 8.8 Total Bilirubin 0.5 AST 25 ALT 15 Alkaline Phosphatase 69 Total Protein 6.4 Albumin 4.1 Coronavirus (PCR) Not Detected Influenza Type A RNA Influenza Type B (PCR) 09/14/22 19:48 WBC RBC Hgb Hct MCV MCH MCHC RDW Plt Count MPV Neutrophils % Lymphocytes % Monocytes % Eosinophils % Basophils % Neutrophils # Lymphocytes # Monocytes # Eosinophils # Basophils # Sodium Potassium Chloride Carbon Dioxide Anion Gap BUN Creatinine Est GFR (CKD-EPI)AfAm Est GFR (CKD-EPI)NonAf Glucose Calcium Total Bilirubin AST ALT Alkaline Phosphatase Total Protein Albumin Coronavirus (PCR) Influenza Type A RNA Not Detected Influenza Type B (PCR) Not Detected Allergies Allergy/AdvReac Type Severity Reaction Status Date / Time aspirin AdvReac Rash/Hives Verified 09/14/22 17:57 peanut AdvReac Unknown Verified 09/14/22 17:57 IMPRESSIONS: Stutter History of Major Depressive Disorder PLAN: -At this time patient DOES NOT meet criteria for inpatient psychiatric admission. -Would recommend the following medication changes/additions: No psychiatric medication recommendations be made at this time. -Consult to speech therapy has been made. Recommend speech-language pathologist evaluation. -Psychiatry will sign off at this point, please contact with any questions.
[2022-09-15 17:16] LABS: Amphetamine Screen,Urine Not Detected (NotDetected); Barbiturate Screen,Urine Not Detected (NotDetected); Benzodiazepines Screen,Urine Not Detected (NotDetected); Cocaine Screen,Urine Not Detected (NotDetected); Methadone Screen, Urine Not Detected (NotDetected); Opiate Screen,Urine Not Detected (NotDetected); Oxycodone Screen, Urine Not Detected (NotDetected); Phencyclidine Screen,Urine Not Detected (NotDetected); Tricyclic Antidepressant,Urine Not Detected (NotDetected); Urn Cannabinoid Scrn Not Detected (NotDetected)
[2022-09-15] MEDS: IBUPROFEN 400 MG TAB PO PRN (18:44)
--- NOTE | 2022-09-15 21:27 | EEG ---
ELECTROENCEPHALOGRAM REPORT PREAMBLE: This is a 32-year-old female with new onset stuttering speech. EEG FINDINGS: This is a 21-channel digital EEG recorded with video component, utilizing 10/20 international system with referential and bipolar montages. Background consists of well developed, well regulated moderate voltage activity in 8 to 9 hertz alpha. Background is posterior dominant and reactive to eye opening and closing. These very frequent paroxysmal high-amplitude, somewhat rhythmic delta and theta activity seen in bihemispheric region, which is maximal in the frontal region. This may last for 1 second to several seconds at a time. Photic driving response was not seen. Different stages of sleep were not clearly seen. No definitive focal or generalized epileptiform activity was seen. EKG channel showed no obvious arrhythmia. IMPRESSION: This is an abnormal EEG due to the presence of frequent bursts of high amplitude, somewhat rhythmic delta and theta activity, maximal in the frontal central region. Also intermittent generalized disorganization of the background in dysrhythmic theta range. This is suggestive of generalized cerebral dysfunction as can be seen with toxic metabolic encephalopathy. Paroxysmal high-amplitude may imply convulsive tendency, although no obvious epileptiform activity was seen. MMODL / IJN: [id number] / [facility]
[2022-09-15] MEDS: TOPIRAMATE 25 MG TAB PO SCH (21:41)
[2022-09-16 07:48] VITALS: BP 104/67; PULSE 69; RESP 15; TEMP 97.8
[2022-09-16] MEDS: TOPIRAMATE 25 MG TAB PO SCH (08:43)
[2022-09-16] MEDS ORDERED: levETIRAcetam IV 1,000 MG in SALINE 1 100ML.BAG IVPB STA (10:49)
--- NOTE | 2022-09-16 10:58 | P.PN ---
Subjective Progress Note Date: 09/16/22 Patient is not improved clinically. Patient denies headache at this time. She had a headache last night, but went away. It lasted for a few hours, and resolved after she got ice pack and Motrin. Higher dose of Topamax has not helped. Objective - Vital Signs Vital signs: Vital Signs Temp 97.8 F 09/16/22 07:00 Pulse 69 09/16/22 07:00 Resp 15 09/16/22 07:00 BP 104/67 09/16/22 07:00 Pulse Ox 99 09/16/22 07:00 FiO2 Intake & Output 09/15/22 09/16/22 09/16/22 18:59 06:59 18:59 Intake Total 236 Balance 236 Intake: Oral 236 Other: # Voids 3 1 - Exam No change at all. Still with stuttering speech. - Labs CBC & Chem 7: 09/14/22 17:12 09/14/22 17:12 Assessment and Plan Assessment: * Stuttering of 3 weeks duration, unclear cause. * Abnormal EEG. * Syncopal spell on 09/02/2022, followed by stuttering speech. Patient has history of vasovagal type of syncopal spells in the past. * Anxiety disorder * Migraine headaches Plan: * Patient has not improved with slightly higher dose of Topamax 75 mg twice a day (increased from 50 mg twice a day). Clinically unchanged. * Due to abnormal EEG, we will give 1 dose of Keppra 1000 mg IV 1 dose, to see if it helps/resolves stuttering. I will revisit patient around noon to see if there is any clinical improvement. If remarkably improved, she will be discharged home on Keppra 500 mg twice a day. If no improvement, then no need to continue Keppra. * Psychiatry note reviewed * Discussed with speech therapist. She felt patient has functional speech pattern, probably not neurological based. * TSH 0.526, B12 859, folate >20, all normal * EEG was performed, which was abnormal. There is intermittent, paroxysmal high amplitude somewhat rhythmic delta and theta activity which is maximal in the frontal region. At times patient has intermittent generalized high amplitude dysrhythmic theta activity seen diffusely in bihemispheric region. This may suggest encephalopathy. Although no clear-cut epileptiform activity was seen, however rhythmic nature may suggest convulsive tendency. 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 * Patient used to see Dr. Rush. She is planning to change neurologists to Dr. Justice. She was recommended to follow with him in 1-2 weeks. Addendum 12:45 PM: Patient received Keppra 1000 mg IV 1 dose. Patient had slight dizziness for a short while, but then went away. Patient's speech has improved about 30%. This was concurred by her sister who was also present at this time. Patient will be discharged on Keppra 500 mg twice a day. She will follow up with Dr. Justice in 1-2 weeks. Neurologically clear. Discussed with primary physician.
[2022-09-16] MEDS: IBUPROFEN 400 MG TAB PO PRN (12:30)
--- NOTE | 2022-09-16 14:12 | P.DS ---
Providers Date of admission: 09/14/22 20:29 Expected date of discharge: 09/16/22 Attending physician: Clint Keita MD Consults: 09/14/22 19:04 Consult Physician Routine Consulting Provider: Maria C Garcia Consult Reason/Comments: stuttering Do you want consulting provider notified?: Yes Consult Physician Routine Consulting Provider: Clinton Phillips Consult Reason/Comments: stuttering Do you want consulting provider notified?: Yes Primary care physician: Stated None Hospital Course: 32 year old female with schizophrenia , off her meds for 2 years now, presented upon recommendation of her neurologist for neuro eval and psych eval. Patient has been having symptoms of stuttering and tingling in the bilateral feet for the past 3 weeks, Patient states that she had a syncopal spell on 08/23/2022 when she was at the doctor's office, undergoing drainage of the sty of the left eye, laying in the bed, when she passed out on the table. There was no tongue bite or loss of control of urine. Patient states that when she woke up, she did not know where she was at, did not know her name. This confusion lasted for a few minutes. Patient states that about couple hours after, she started having "word salad". Subsequently a couple days later on August 26 and , she developed stuttering which has been persistent since then. Patient states that she has history of syncopal spells at the dentist office multiple times when she was being poked. She has not had any syncopal spells related to blood draws. She does have anxiety disorder. No history of seizures. Patient has been on Topamax for last 1 year for migraines. She has smoked 1 pack every 4-5 days for 10 years, quit 1-1/2 years ago. Denies any alcohol use, drugs, marijuana, diabetes or hypertension. Patient follows with Dr. Justice from neurology as OP, she had MRI of the brain done , no acute pathology shown, and EEG was within normal limits. Upon admission patient was evaluated by neurology as well as psychiatry. No inpatient psychiatric admission or psychiatric meds were advised by the psychiatrist. EEG was done based on the recommendation of the neurologist and that showed paroxysmal high amplitude bursts in the frontal area consistent with hyperstimulation and convulsive tendency. No epileptiform discharges were reported. Subsequently Topamax was increased to 75 mg twice a day by the neurologist. Keppra was tried to see how her stuttering does with it, afterwards it improved about 30% therefore neurology advised discharging patient on Keppra 500 mg by mouth twice a day. Patient was advised to follow-up with her neurologist. She was also referred to outpatient speech therapy. Patient was evaluated [id number] on the day of discharge 09/16, she was seen and examined Time for discharge 35 minutes. Patient Condition at Discharge: Good Plan - Discharge Summary Discharge Rx Participant: No New Discharge Prescriptions: New levETIRAcetam [Keppra] 500 mg PO Q12HR 30 Days #60 tab Topiramate [Topamax] 75 mg PO BID 30 Days #60 tab Continue Albuterol Inhaler [Ventolin Hfa Inhaler] 2 puff INHALATION RT-Q6H PRN PRN Reason: Shortness Of Breath Fluticasone Propion/Salmeterol [Advair 100-50 Diskus] 1 puff INHALATION RT- BID Discontinued Topiramate 50 mg PO BID Discharge Medication List Albuterol Inhaler [Ventolin Hfa Inhaler] 2 puff INHALATION RT-Q6H PRN 09/14/22 [History] Fluticasone Propion/Salmeterol [Advair 100-50 Diskus] 1 puff INHALATION RT-BID 09/14/22 [History] Topiramate [Topamax] 75 mg PO BID 30 Days #60 tab 09/16/22 [Rx] levETIRAcetam [Keppra] 500 mg PO Q12HR 30 Days #60 tab 09/16/22 [Rx] Follow up Appointment(s)/Referral(s): None,Stated [Primary Care Provider] - 1-2 days Sean Justice DO [STAFF PHYSICIAN] - 1 Week
[2022-09-21 07:47] LABS: Arsenic Whole Blood <3 mcg/L (<23); Mercury Whole Blood <5 mcg/L (<OR=10)
== END 2022-09-16 14:52 ==
LOC: EC 13:28 → 6NMEDSUR 20:29
PROVIDERS: ADMIT Student in an Organized Health Care Education/Training Program; ATTEND Student in an Organized Health Care Education/Training Program
DX: F98.5 Adult onset fluency disorder (principal); R94.01 Abnormal electroencephalogram [EEG]; F20.9 Schizophrenia, unspecified; G43.909 Migraine, unspecified, not intractable, without status migrainosus; J45.909 Unspecified asthma, uncomplicated; R42 Dizziness and giddiness; R53.83 Other fatigue; R20.2 Paresthesia of skin; R41.3 Other amnesia; R55 Syncope and collapse; F32.9 Major depressive disorder, single episode, unspecified; F41.9 Anxiety disorder, unspecified; Z20.822 Contact with and (suspected) exposure to COVID-19; Z79.51 Long term (current) use of inhaled steroids; Z79.899 Other long term (current) drug therapy; Z88.6 Allergy status to analgesic agent; Z91.010 Allergy to peanuts; Z90.49 Acquired absence of other specified parts of digestive tract; Z87.891 Personal history of nicotine dependence; Z85.05 Personal history of malignant neoplasm of liver; Z91.14 Patient's other noncompliance with medication regimen
CPT/HCPCS: 96365; 99285; 36415; 95816; 93005; 92521; 83655 ×2; 80053; 84443; 82607; 82746; 85025; 82175; 83825 ×2; 82570; 80306; 87502; 87635; G0378 ×3; J1953

== ENCOUNTER → 2022-12-03 | Outpatient (CLI) | payer BC, OTHER ==
--- NOTE | 2022-12-03 15:16 | US ---
EXAMINATION TYPE: US pelvis complete transvag DATE OF EXAM: 12/03/2022 COMPARISON: Transvaginal ultrasound 06/09/2021 CLINICAL HISTORY: RLQ pain R10.31. pelvic pain bilateral, h/o endometriosis, G0 TECHNIQUE: TV/TA. Transabdominal sonographic images of the pelvis were acquired. Transvaginal sono graphic images Date of LMP: 11/18/2022 EXAM MEASUREMENTS: Uterus: 8.5 x 5.0 x 3.8 cm Endometrial Stripe: 1.0 cm Right Ovary: N/A Left Ovary: N/A scanned transabdominally to see ovaries but was unable to identify them with TV or TA approach 1. Uterus: Anteverted wnl 2. Endometrium: wnl 3. Right Ovary: not seen due to bowel gas 4. Left Ovary: not seen due to bowel gas 5. Bilateral Adnexa: bowel gas 6. Posterior cul-de-sac: wnl IMPRESSION: Examination is limited due to overlying bowel gas. 1. No acute pelvic process within limitations. 2. Endometrium is normal thickness. 3. Nonvisualization of both ovaries due to overlying bowel gas.
== END | disposition home or self-care (01) ==
LOC: RADUSWWP 14:38
PROVIDERS: ATTEND Obstetrics & Gynecology
DX: R10.31 Right lower quadrant pain (principal)
CPT/HCPCS: 76830; 76856

== ENCOUNTER → 2023-02-08 | Outpatient (CLI) | payer BC, OTHER ==
[2023-02-08 23:03] LABS: Basophils # (A) 0.03 X 10*3/uL (0.00-0.10); Basophils % (A) 0.6 %; Eosinophils # (A) 0.08 X 10*3/uL (0.04-0.35); Eosinophils % (A) 1.5 %; HCT 41.3 % (37.2-46.3); HGB 13.9 g/dL (12.0-15.0); Immature Grans, Automated 0.4 %; Lymphocytes # (A) 1.79 X 10*3/uL (0.90-5.00); Lymphocytes % (A) 33.6 %; MCH 30.5 pg (27.0-32.0); MCHC 33.7 g/dL (32.0-37.0); MCV 90.6 fL (80.0-97.0); Mean Platelet Volume 12.6 fL (9.5-12.2); Monocytes # (A) 0.29 X 10*3/uL (0.20-1.00); Monocytes % (A) 5.4 %; NRBC Per 100 WBC 0 /100 WBCS (0.0-0.0); Neutrophils # (A) 3.12 X 10*3/uL (1.80-7.70); Neutrophils % (A) 58.5 %; Platelet Count 237 X 10*3/uL (140-440); RBC 4.56 X 10*6/uL (4.10-5.20); RDW 12.6 % (11.5-14.5); WBC 5.33 X 10*3/uL (4.50-10.00)
== END | disposition home or self-care (01) ==
LOC: LABWHC1 14:44
PROVIDERS: ATTEND Obstetrics & Gynecology
DX: N92.0 Excessive and frequent menstruation with regular cycle (principal)
CPT/HCPCS: 36415; 85025

== ENCOUNTER → 2023-06-27 | Outpatient (CLI) | payer BC, OTHER ==
[2023-06-28 03:37] LABS: Basophils # (A) 0.02 X 10*3/uL (0.00-0.10); Basophils % (A) 0.3 %; Eosinophils # (A) 0.06 X 10*3/uL (0.04-0.35); Eosinophils % (A) 0.9 %; HCT 41.7 % (37.2-46.3); HGB 13.7 d/dL (12.0-15.0); MCHC 32.9 d/dL (32.0-37.0); MCV 91.2 FL (80.0-97.0); Mean Platelet Volume 13.1 FL (9.5-12.2); Monocytes # (A) 0.36 X 10*3/uL (0.20-1.00); Monocytes % (A) 5.7 %; NRBC Per 100 WBC 0 X 10*3/uL (0.00-0.01); Neutrophils # (A) 3.98 X 10*3/uL (1.80-7.70); Neutrophils % (A) 62.8 %; Platelet Count 203 X 10*3/uL (140-440); RBC 4.57 X 10*6/uL (4.10-5.20); RDW 12.4 % (11.5-14.5); WBC 6.34 X 10*3/uL (4.50-10.00)
[2023-06-28 09:48] LABS: EBV-EA (IgG) <0.2 AI; EBV-EBNA(IgG) >8.0; EBV-VCA (IgG) 5.2 AI; EBV-VCA (IgM) 0.3 AI
== END | disposition home or self-care (01) ==
LOC: LABWHC1 14:54
PROVIDERS: ATTEND Obstetrics & Gynecology
DX: R53.83 Other fatigue (principal)
CPT/HCPCS: 36415; 85025; 86663; 86664; 86665

== ENCOUNTER → 2023-12-23 | Outpatient (CLI) | payer BC, OTHER ==
--- NOTE | 2023-12-26 10:43 | US ---
EXAMINATION TYPE: US thyroid st tissue head/neck DATE OF EXAM: 12/23/2023 COMPARISON: NONE CLINICAL INDICATION: Female, 33 years old with history of E04.9 GOITER; Patient says she has known th yroid nodules, seen elsewhere. States that she also has difficulty swallowing. Patient is not on thyr oid medication GLAND SIZE: Right Lobe: 5.6 x 1.4 x 1.6 cm Overall Parenchyma: homogeneous Left Lobe: 5.6 x 1.6 x 1.7 cm Overall Parenchyma: homogeneous Isthmus Thickness: 0.3 cm NODULES RIGHT: # of nodules measured on right: 1 1. 0.6 X 0.4 x 0.3 cm, lower mid, cystic or almost completely cystic, anechoic nodule, which is wid er than tall, with smooth margins, without echogenic foci. LEFT: # of nodules measured on left: 3 1. 0.5 X 0.5 x 0.3 cm, upper mid, solid or almost completely solid, hypoechoic TR 4 nodule, which i s wider than tall, with ill-defined margins, without echogenic foci. 2. 1.0 X 0.6 x 0.5 cm, mid mid, solid or almost completely solid, hypoechoic TR 4 nodule, which is wider than tall, with smooth margins, without echogenic foci. 3. 0.8 X 0.5 x 0.4 cm, mid lateral, mixed cystic and solid, hypoechoic TR 4 nodule, which is wider than tall, with smooth margins, without echogenic foci. ISTHMUS: # of nodules measured in the isthmus: 0 Bilateral neck scanned, no evidence of lymphadenopathy. IMPRESSION: Correlate for multinodular goiter. A few TR4 nodules on the left measure up to 1.0 cm. 2017 ACR TI-RADS LEVEL: TR-RADS 4 - Moderately Suspicious: Follow if > 1 cm, FNA if > 1.5 cm *Highest TI-RADS level nodule reported
== END | disposition home or self-care (01) ==
LOC: RADUSWWP 15:49
PROVIDERS: ATTEND Family Medicine
DX: E04.2 Nontoxic multinodular goiter (principal)
CPT/HCPCS: 76536

== ENCOUNTER → 2024-03-02 | Outpatient (CLI) | payer BC, OTHER ==
--- NOTE | 2024-03-02 15:02 | XR ---
EXAMINATION TYPE: XR lumbosacral spine min 4V DATE OF EXAM: 03/02/2024 2:02 PM CLINICAL INDICATION:Female, 33 years old with history of M54.16 RADICULOPATHY, LUMBAR REGION M54.50 L OW ROSALVA; [facility] COMPARISON: None TECHNIQUE: XR lumbosacral spine min 4V - Frontal, lateral , bilateral oblique and coned in L5-S1 late ral views of the spine. FINDINGS: The anterior aspects of the vertebral bodies at T11-T12 and L1 are fused. No evidence of an y acute osseous pathology. No evidence of loss of vertebral body height is seen. There is normal ali gnment of the lumbar vertebral bodies. No significant degeneration changes throughout the spine. IMPRESSION: 1. No acute fracture. 2. Mild multilevel disc degeneration. 3. 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
== END ==
LOC: RADXRMAIN 13:42
PROVIDERS: ATTEND Chiropractor
DX: M51.17 Intervertebral disc disorders with radiculopathy, lumbosacral region (principal)
CPT/HCPCS: 72110

== ENCOUNTER → 2024-11-29 | Outpatient (CLI) | payer BC, OTHER ==
[2024-11-29 19:33] LABS: T4, Free (Free Thyroxine) 1.47 ng/dL (0.80-1.80)
== END | disposition home or self-care (01) ==
LOC: LABWHC1 15:36
PROVIDERS: ATTEND Obstetrics & Gynecology
DX: Z13.29 Encounter for screening for other suspected endocrine disorder (principal)
CPT/HCPCS: 36415; 84439; 84443